=== PATIENT | male | born 1940 | race Caucasian/White ===

== ENCOUNTER 2018-10-27 19:28 | Inpatient (IN) | payer MEDICARE ==
[~2018-10-27] VITALS: Ht 175.3 cm; Wt 43.1 kg
[2018-10-27 19:00] VITALS: BP 147/85
--- NOTE | 2018-10-27 19:30 | NUR ---
Received patient with family at bedside. Alert and oriented x 1-2. Patient noted to be confused. No C/O pain or SOB at this time. Med Recon pending. MD aware. Right elbow noted to be bruised, photo taken and placed in chart. Call light and and frequently used items within reach. Will continue to monitor.
--- NOTE | 2018-10-27 19:56 | NUR ---
Admitted from [facility], per [facility] for acute metabolic encephalopathy and generalized weakness. Patient alert x1-2. No pain noted. Not in any form of distress. Assisted to commode for BM. Oriented to unit and call light. Dr Plaza made aware of admission.
[2018-10-27] MEDS ORDERED: SACC250C PO (20:00)
[2018-10-27] MEDS ORDERED: CARB1TAB40 PO (20:00)
[2018-10-27] MEDS ORDERED: SERT50TA PO (20:00)
[2018-10-27] MEDS ORDERED: FLUD0.1T PO (20:00)
[2018-10-27] MEDS ORDERED: CLON0.5T12 PO (20:00)
[2018-10-27] MEDS ORDERED: CHOL20004 PO (20:00)
[2018-10-27] MEDS ORDERED: LOVA20TA2 PO (20:00)
[2018-10-27] MEDS ORDERED: MESA0.37 PO (20:00)
[2018-10-27] MEDS ORDERED: RASA1TAB4 PO (20:00)
[2018-10-27] MEDS ORDERED: CARB-93 PO (20:00)
[2018-10-27] MEDS ORDERED: CYAN-10 PO (20:00)
[2018-10-27] MEDS ORDERED: MEMA10TA PO (20:00)
[2018-10-27 20:34] VITALS: BP 149/69
[2018-10-27] MEDS ORDERED: CLONAZEPAM 0.5 MG TABLET PO PRN (20:45)
[2018-10-27] MEDS ORDERED: CARBIDOPA/LEVODOPA CR 50-200MG TABLET.SA PO SCH (21:00)
[2018-10-27] MEDS: ATORVASTATIN 20 MG TABLET PO SCH (21:11)
[2018-10-27] MEDS: MEMANTINE HCL 5 MG TABLET PO SCH (21:11)
--- NOTE | 2018-10-28 02:03 | NUR ---
New assignment. Pt sleeping comfortably. No acute distress noted. Safety measures maintained. Bed alarm on. Call light within reach. Will continue to monitor.
[2018-10-28 05:10] VITALS: BP 176/89
--- NOTE | 2018-10-28 06:35 | NUR ---
Pt's BP this morning 176/89, HR 65. Asymptomatic. Paged Dr. Brand. As per , follow up with the pt's pharmacy first to know what the pt is taking for hypertension at home. No new medication order. Will continue to monitor. Addendum: 10/28/18 at 0646 by Mac Yi RN As per , pt's BP is okay and pt does not need PRN hypertension med at this time if he has history of hypertension. Follow up with pt's pharmacy.
[2018-10-28 07:10] VITALS: BP 166/90
--- NOTE | 2018-10-28 07:59 | NUR ---
patient is in bed, awake, no sob, no acute distress noted
[2018-10-28] MEDS: CARBIDOPA/LEVODOPA 25-100MG TABLET PO SCH ×2 (08:02→12:17)
[2018-10-28] MEDS: CHOLECALCIFEROL 1,000 UNIT TABLET PO SCH (08:02)
[2018-10-28] MEDS: MEMANTINE HCL 5 MG TABLET PO SCH ×2 (08:04→20:11)
[2018-10-28] MEDS: SERTRALINE HCL 50 MG TABLET PO SCH (08:04)
[2018-10-28] MEDS ORDERED: MEMANTINE HCL 10 MG TABLET PO SCH (09:00)
[2018-10-28] MEDS ORDERED: [UNRECOGNIZED DRUG - OTHER] PO SCH (09:00)
[2018-10-28] MEDS ORDERED: Medication Not On Formulary EA (Saccharomyces Boulardii (Florastor) 250 MG) PO SCH (09:00)
[2018-10-28] MEDS ORDERED: FLUDROCORTISONE ACETATE 0.1 MG TABLET PO SCH (09:00)
[2018-10-28] MEDS ORDERED: MESALAMINE PO SCH (09:00)
[2018-10-28] MEDS ORDERED: CHOLECALCIFEROL U PO SCH (09:00)
[2018-10-28] MEDS: METOPROLOL TARTRATE 25 MG TABLET PO SCH ×2 (09:30→20:11)
[2018-10-28 10:11] VITALS: BP 111/55
[2018-10-28 15:15] VITALS: BP 157/81
[2018-10-28] MEDS ORDERED: CYAN-51 PO (15:21)
[2018-10-28] MEDS: [UNRECOGNIZED DRUG - OTHER] PO SCH (17:03)
[2018-10-28] MEDS: RASAGILINE 1 MG PO SCH (17:03)
--- NOTE | 2018-10-28 17:24 | NUR ---
patient is alert x1 with episodes of forgetfulness and confusion, reoriented as needed, no sob, resp even nonlabored,skin warm and dry to touch, no changes noted during the shift, patient is high risk to fall, does not call for assistance, frequently monitored for safety, bed alarm is on, kept clean and dry, all needs attended timely, sister brought the medication and given to pharmacy, home meds list given to pharmacy as well.
[2018-10-28] MEDS ORDERED: Medication Not On Formulary EA (Rasagiline Mesylate 1 MG) PO SCH (18:00)
--- NOTE | 2018-10-28 19:30 | NUR ---
Patient alert and oriented x 1, and is often confused and tries to get out of bed. No acute symptoms of Parkinson's noted at this time. No C/O pain or SOB at this time. Side rails up bilaterally bilaterally for safety. Call light and frequently used items within reach. Will continue to monitor.
[2018-10-28] MEDS: CARBIDOPA/LEVODOPA CR 50-200MG TABLET.SA PO SCH (20:11)
[2018-10-28] MEDS: ATORVASTATIN 20 MG TABLET PO SCH (20:11)
[2018-10-28 20:41] VITALS: BP 146/69
[2018-10-28] MEDS ORDERED: Z GUARD REMEDY PASTE 57 GM TUBE TOP PRN (23:30)
[2018-10-29 05:00] VITALS: BP 172/76
--- NOTE | 2018-10-29 06:50 | NUR ---
MD Brand contacted for increased BP of 172/76. No new orders at this time. MD states to have day shift MD adjust medications to help HTN longterm. Does not want to start him on PRN medications at this time. Stated to have earlier dose in the day, or a stronger dose in the evening. Will endorse to oncoming shift accordingly.
[2018-10-29 06:52] VITALS: BP 179/80
[2018-10-29 06:52] LABS: BASOPHILS # (AUTO) 0.1 K/uL (0.0-8.0); BASOPHILS % (AUTO) 1.6 % (0.0-2.0); EOSINOPHILS # (AUTO) 0.8 K/uL (0.0-0.7); EOSINOPHILS % (AUTO) 10.3 % (0.0-7.0); HEMOGLOBIN 14.2 g/dL (12.5-16.3); LYMPHOCYTES # (AUTO) 1.1 K/uL (20.0-40.0); LYMPHOCYTES % (AUTO) 13.3 % (20.5-51.5); MEAN CORPUSCULAR HEMOGLOBIN 32.2 uug (23.8-33.4); MEAN CORPUSCULAR HGB CONC 35 g/dL (32.5-36.3); MONOCYTES # (AUTO) 0.5 K/uL (2.0-10.0); MONOCYTES % (AUTO) 6.1 % (0.0-11.0); NEUTROPHILS # (AUTO) 5.6 K/uL (1.8-8.9); NEUTROPHILS % (AUTO) 68.7 % (38.5-71.5); PLATELET COUNT (AUTO) 224 K/uL (152-348); RED BLOOD CELL COUNT(AUTO) 4.39 MIL/uL (4.06-5.63); WHITE BLOOD COUNT (AUTO) 8.2 K/uL (3.6-10.2)
[2018-10-29 07:10] LABS: THYROID STIMULATING HORMONE 3.125 mIU/mL (0.358-3.740)
[2018-10-29 07:32] LABS: ALANINE AMINOTRANSFERASE < 6 U/L (16-63); ALKALINE PHOSPHATASE 80 U/L (50-136); ASPARTATE AMINOTRANSFERASE 8 U/L (15-37); BILIRUBIN,TOTAL 1.1 mg/dL (0.2-1.0); CARBON DIOXIDE 33 mmol/L (21-32); CHLORIDE 105 mmol/L (98-107); CHOLESTEROL 144 mg/dL (<200); GLUCOSE 97 mg/dL (74-106); HDL CHOLESTEROL 50 mg/dL (40-60); MAGNESIUM 2.1 mg/dL (1.8-2.4); PHOSPHOROUS 3.3 mg/dL (2.5-4.9); TOTAL PROTEIN, SERUM 6.9 g/dL (6.4-8.2); TRIGLYCERIDES 72 MG/DL (30-150); UREA NITROGEN, BLOOD 27 mg/dL (7-18)
[2018-10-29] MEDS: CHOLECALCIFEROL 1,000 UNIT TABLET PO SCH (08:05)
[2018-10-29] MEDS: METOPROLOL TARTRATE 25 MG TABLET PO SCH ×2 (08:05→21:35)
[2018-10-29] MEDS: CARBIDOPA/LEVODOPA 25-100MG TABLET PO SCH ×3 (08:05→15:55)
[2018-10-29] MEDS: MEMANTINE HCL 5 MG TABLET PO SCH ×2 (08:06→21:36)
[2018-10-29] MEDS: SERTRALINE HCL 50 MG TABLET PO SCH (08:07)
[2018-10-29] MEDS: MESALAMINE 0.375 GM PO SCH (08:09)
[2018-10-29] MEDS: [UNRECOGNIZED DRUG - OTHER] PO SCH (08:09)
[2018-10-29 08:16] VITALS: BP 163/82
[2018-10-29] MEDS: PROBIOTIC PO SCH (08:39)
[2018-10-29] MEDS: [UNRECOGNIZED DRUG - OTHER] PO SCH (08:39)
[2018-10-29] MEDS: POTASSIUM CHLORIDE 10 MEQ TAB.PRT.SR PO SCH ×2 (12:18→15:14)
[2018-10-29 15:38] VITALS: BP 119/69
[2018-10-29] MEDS: [UNRECOGNIZED DRUG - OTHER] PO SCH (15:55)
[2018-10-29] MEDS: RASAGILINE 1 MG PO SCH (15:55)
--- NOTE | 2018-10-29 16:27 | NUR ---
patient is forgetful, oriented to self and her sister, no sob, resp even nonlabored, oriented as needed, frequently monitored for safety, forgets to call assistance for help, reminded and oriented about call light, sister was bedside, managed Parkinson's with Sinemet as ordered, no tremors noted, tolerated meals and meds well, assisted with ADLS, needs moderate assist, all needs attended, call light with in reach, bed alarm on for safety.
[2018-10-29 20:21] VITALS: BP 106/61
[2018-10-29] MEDS: CARBIDOPA/LEVODOPA CR 50-200MG TABLET.SA PO SCH (20:32)
[2018-10-29] MEDS: ATORVASTATIN 20 MG TABLET PO SCH (21:36)
[2018-10-30 05:46] VITALS: BP 171/82
[2018-10-30 07:10] VITALS: BP 154/75
--- NOTE | 2018-10-30 08:03 | NUR ---
Patient is alert x oriented 1 with forgetfulness and confusion noted. Breathing is even and unlabored. In NO acute distress. Skin warm and dry to touch. Assisted with ADLs during shift, safety measures in place, monitored closely. Due medications administered as ordered and scheduled and tolerated well. Skin kept clean and dry, needs attended, assisted with ADLs, call light left within easy reach and will continue with care.
[2018-10-30] MEDS: MEMANTINE HCL 5 MG TABLET PO SCH ×2 (08:19→20:16)
[2018-10-30] MEDS: CHOLECALCIFEROL 1,000 UNIT TABLET PO SCH (08:19)
[2018-10-30] MEDS: CARBIDOPA/LEVODOPA 25-100MG TABLET PO SCH ×3 (08:19→14:46)
[2018-10-30] MEDS: METOPROLOL TARTRATE 25 MG TABLET PO SCH ×2 (08:20→20:16)
[2018-10-30] MEDS: SERTRALINE HCL 50 MG TABLET PO SCH (08:20)
[2018-10-30] MEDS: MESALAMINE 0.375 GM PO SCH (08:21)
[2018-10-30] MEDS: [UNRECOGNIZED DRUG - OTHER] PO SCH (08:21)
[2018-10-30] MEDS: [UNRECOGNIZED DRUG - OTHER] PO SCH (08:23)
[2018-10-30] MEDS: PROBIOTIC PO SCH (08:23)
--- NOTE | 2018-10-30 09:54 | NUR ---
INDIVIDUALIZED OVERALL PLAN OF CARE
--- NOTE | 2018-10-30 10:58 | NUR ---
Received patient awake in bed with periods of confusion. not in distress. Continue therapy for ADL and unsteady gait. Continue minimal assist for BRP. no complaint of pain/discomfort. will continue monitor
--- NOTE | 2018-10-30 12:25 | NUR ---
INTERDISCIPLINARY TEAM CONFERENCE
[2018-10-30] MEDS: RASAGILINE 1 MG PO SCH (14:46)
[2018-10-30] MEDS: [UNRECOGNIZED DRUG - OTHER] PO SCH (14:46)
[2018-10-30 15:10] VITALS: BP 151/70
[2018-10-30] MEDS: CARBIDOPA/LEVODOPA CR 50-200MG TABLET.SA PO SCH (20:14)
[2018-10-30] MEDS: ATORVASTATIN 20 MG TABLET PO SCH (20:15)
[2018-10-30 20:29] VITALS: BP 140/58
--- NOTE | 2018-10-31 05:00 | NUR ---
aaox1-2 with periods of confusion and disorientation. VSS Needs attended. Kept comfortable. Incontinent of bowel and bladder. No BM noted thias Kept clean and dry. Fall precautions maintained. Tolerated po meds well. No nausea or vomitting noted.
[2018-10-31 06:12] VITALS: BP 121/48
[2018-10-31 07:25] LABS: BASOPHILS # (AUTO) 0.1 K/uL (0.0-8.0); BASOPHILS % (AUTO) 1.3 % (0.0-2.0); EOSINOPHILS # (AUTO) 0.9 K/uL (0.0-0.7); EOSINOPHILS % (AUTO) 10.6 % (0.0-7.0); HEMATOCRIT 38.5 % (36.7-47.1); HEMOGLOBIN 13.6 g/dL (12.5-16.3); LYMPHOCYTES % (AUTO) 11.8 % (20.5-51.5); MEAN CORPUSCULAR HEMOGLOBIN 32.4 uug (23.8-33.4); MEAN CORPUSCULAR HGB CONC 35 g/dL (32.5-36.3); MEAN CORPUSCULAR VOLUME 91.3 fL (73.0-96.2); MONOCYTES # (AUTO) 0.4 K/uL (2.0-10.0); MONOCYTES % (AUTO) 4.5 % (0.0-11.0); NEUTROPHILS # (AUTO) 6.3 K/uL (1.8-8.9); NEUTROPHILS % (AUTO) 71.8 % (38.5-71.5); PLATELET COUNT (AUTO) 234 K/uL (152-348); RED BLOOD CELL COUNT(AUTO) 4.21 MIL/uL (4.06-5.63); WHITE BLOOD COUNT (AUTO) 8.8 K/uL (3.6-10.2)
[2018-10-31 07:35] LABS: ALANINE AMINOTRANSFERASE < 6 U/L (16-63); ALKALINE PHOSPHATASE 87 U/L (50-136); ASPARTATE AMINOTRANSFERASE 14 U/L (15-37); CARBON DIOXIDE 32 mmol/L (21-32); CHLORIDE 104 mmol/L (98-107); GLUCOSE 99 mg/dL (74-106); PHOSPHOROUS 2.9 mg/dL (2.5-4.9); POTASSIUM 3.4 mmol/L (3.5-5.1); TOTAL PROTEIN, SERUM 7.1 g/dL (6.4-8.2); UREA NITROGEN, BLOOD 29 mg/dL (7-18)
--- NOTE | 2018-10-31 07:40 | NUR ---
Patient noted resting in bed with eyes closed, no complaints of pain at this time, no signs of distress noted, call light in reach, bed light in lowest position, all needs met
[2018-10-31] MEDS: CHOLECALCIFEROL 1,000 UNIT TABLET PO SCH (08:28)
[2018-10-31] MEDS: SERTRALINE HCL 50 MG TABLET PO SCH (08:29)
[2018-10-31] MEDS: METOPROLOL TARTRATE 25 MG TABLET PO SCH ×2 (08:30→20:32)
[2018-10-31] MEDS: MEMANTINE HCL 5 MG TABLET PO SCH ×2 (08:30→20:31)
[2018-10-31] MEDS: CARBIDOPA/LEVODOPA 25-100MG TABLET PO SCH ×3 (08:30→16:53)
[2018-10-31 08:31] VITALS: BP 176/86
[2018-10-31] MEDS: MESALAMINE 0.375 GM PO SCH (08:31)
[2018-10-31] MEDS: [UNRECOGNIZED DRUG - OTHER] PO SCH (08:31)
[2018-10-31] MEDS: PROBIOTIC PO SCH (08:31)
[2018-10-31] MEDS: [UNRECOGNIZED DRUG - OTHER] PO SCH (08:31)
[2018-10-31] MEDS ORDERED: POTASSIUM CHLORIDE 20 MEQ TAB.PRT.SR PO ONE (14:45)
[2018-10-31 15:48] VITALS: BP 107/65
[2018-10-31] MEDS: RASAGILINE 1 MG PO SCH (16:54)
[2018-10-31] MEDS: [UNRECOGNIZED DRUG - OTHER] PO SCH (16:54)
[2018-10-31 20:03] VITALS: BP 128/76
[2018-10-31] MEDS: ATORVASTATIN 20 MG TABLET PO SCH (20:31)
[2018-10-31] MEDS: CARBIDOPA/LEVODOPA CR 50-200MG TABLET.SA PO SCH (20:32)
[2018-11-01 04:52] VITALS: BP 172/81
--- NOTE | 2018-11-01 06:26 | NUR ---
quiet night. tolerated po meds well. VSS OOB to the BR with walker under supervision. Voiding well. Needs attended. denies any pain nor any discomfort. Siderails up for safety. will monitor patient.
[2018-11-01 08:00] VITALS: BP 157/74
[2018-11-01] MEDS: [UNRECOGNIZED DRUG - OTHER] PO SCH (09:12)
[2018-11-01] MEDS: PROBIOTIC PO SCH (09:12)
[2018-11-01] MEDS: [UNRECOGNIZED DRUG - OTHER] PO SCH (09:12)
[2018-11-01] MEDS: MESALAMINE 0.375 GM PO SCH (09:12)
[2018-11-01] MEDS: SERTRALINE HCL 50 MG TABLET PO SCH (09:13)
[2018-11-01] MEDS: MEMANTINE HCL 5 MG TABLET PO SCH ×2 (09:13→20:34)
[2018-11-01] MEDS: CARBIDOPA/LEVODOPA 25-100MG TABLET PO SCH ×3 (09:13→16:44)
[2018-11-01] MEDS: CHOLECALCIFEROL 1,000 UNIT TABLET PO SCH (09:13)
[2018-11-01] MEDS: METOPROLOL TARTRATE 25 MG TABLET PO SCH ×2 (09:14→20:33)
[2018-11-01 16:36] VITALS: BP 105/61
[2018-11-01] MEDS: RASAGILINE 1 MG PO SCH (16:45)
[2018-11-01] MEDS: [UNRECOGNIZED DRUG - OTHER] PO SCH (16:45)
[2018-11-01 19:49] VITALS: BP 119/62
--- NOTE | 2018-11-01 19:50 | NUR ---
awake alert and oriented x1-2. cionfused and disoriented. resting in bed upon initial rounds. VSS. OOB to the BR with supervision. Voiding well. Needs attended. Fall precautions maintained. Siderails up for safety. Will monitor patient.
[2018-11-01] MEDS: CARBIDOPA/LEVODOPA CR 50-200MG TABLET.SA PO SCH (20:32)
[2018-11-01] MEDS: ATORVASTATIN 20 MG TABLET PO SCH (20:34)
[2018-11-02 04:42] VITALS: BP 136/73
[2018-11-02 07:41] LABS: MAGNESIUM 2.1 mg/dL (1.8-2.4); POTASSIUM 3.7 mmol/L (3.5-5.1)
[2018-11-02 08:00] VITALS: BP 166/76
[2018-11-02] MEDS: CARBIDOPA/LEVODOPA 25-100MG TABLET PO SCH ×3 (08:31→16:08)
[2018-11-02] MEDS: MEMANTINE HCL 5 MG TABLET PO SCH ×2 (08:31→20:38)
[2018-11-02] MEDS: CHOLECALCIFEROL 1,000 UNIT TABLET PO SCH (08:31)
[2018-11-02] MEDS: SERTRALINE HCL 50 MG TABLET PO SCH (08:31)
[2018-11-02] MEDS: [UNRECOGNIZED DRUG - OTHER] PO SCH (08:32)
[2018-11-02] MEDS: MESALAMINE 0.375 GM PO SCH (08:32)
[2018-11-02] MEDS: [UNRECOGNIZED DRUG - OTHER] PO SCH (08:32)
[2018-11-02] MEDS: METOPROLOL TARTRATE 25 MG TABLET PO SCH ×2 (08:32→20:39)
[2018-11-02] MEDS: PROBIOTIC PO SCH (08:32)
--- NOTE | 2018-11-02 15:00 | NUR ---
Patient increase confusion from baseline noted, md Ayoub made aware with orders for 1) Urine analysis with culture 2) CT of head without contrast 3) decrease Sinemet 25-100 for 2 tabs TID to 1 tab TID
[2018-11-02] MEDS: RASAGILINE 1 MG PO SCH (16:07)
[2018-11-02] MEDS: [UNRECOGNIZED DRUG - OTHER] PO SCH (16:07)
[2018-11-02 16:30] VITALS: BP 119/54
[2018-11-02 18:23] LABS: *BILIRUBIN,URIN 2+ (NEGATIVE); *BLOOD, URINE NEGATIVE (NEGATIVE); *CLARITY,URINE SLIGHTLY CLOUDY (CLEAR); *COLOR,URINE DARK YELLOW (YELLOW); *KETONES,URINE 1+ (NEGATIVE); LEUKOCYTE ESTERASE ,URINE TRACE (NEGATIVE); NITRITE, URINE NEGATIVE (NEGATIVE); UGLUCOSE NEGATIVE (NEGATIVE)
[2018-11-02 18:26] LABS: *CHLORIDE RNDM,URINE 55 mmol/L (100-250); *POTASSIUM RNDM,URINE 73 mmol/L (25-125)
[2018-11-02 18:32] LABS: BACTERIA,URINE FEW /HPF (NONE SEEN); SQUAMOUS EPITHELIAL CELL,UR FEW /HPF (NONE SEEN)
[2018-11-02 18:34] LABS: CALCIUM OXALATE CRYSTALS,UR FEW /HPF (NONE SEEN)
--- NOTE | 2018-11-02 19:15 | NUR ---
Patient awake during rounds, always trying to get out of bed despite frequent instruction not to to avoid falls/injury. Non compliant to treatment. Close physical and visual supervision rendered. Safety measure and fall precaution strictly maintained at [facility] time due to recent fall incident today.
--- NOTE | 2018-11-02 19:22 | NUR ---
patient noted walking with walk with out calling for assistance, witnessed falling by on coming nurse, On coming nurse witnessed patient falling left side, obtain left elbow skin tear, denies pain, vitals:132/67, 96% 02, 60 pulse, 98.0 oral temperature, MD Ayoub made aware with new orders for left hip and left elbow X-ray. Addendum: 11/02/18 at 1951 by GAIL FARRIS RN RN Sister Rahel informed of findings, coil machine supervisor notified, order for 1 to 1 sitter, patient place in room near front facer, bed alarm in place
[2018-11-02] MEDS: CARBIDOPA/LEVODOPA CR 50-200MG TABLET.SA PO SCH (20:38)
[2018-11-02] MEDS: CLONAZEPAM 0.5 MG TABLET PO PRN (20:38)
[2018-11-02] MEDS: ATORVASTATIN 20 MG TABLET PO SCH (20:38)
[2018-11-02] MEDS: CLOBETASOL PROPIONATE 0.05% OINT 15 GM TUBE TOP SCH (20:40)
[2018-11-02 22:04] VITALS: BP 132/67
[2018-11-03 04:40] VITALS: BP 174/91
[2018-11-03] MEDS: METOPROLOL TARTRATE 25 MG TABLET PO SCH ×2 (06:07→20:38)
--- NOTE | 2018-11-03 06:10 | NUR ---
Patient SBP 174/91, HR 63, early dose of Metoprolol given. will monitor BP and endorse to oncoming nurse.
--- NOTE | 2018-11-03 06:36 | NUR ---
Shift End Report: Slept well after Klonopin administration as ordered and as needed. All needs attended and met. No significant event reported. Close physical and visual monitoring maintained. Continue current rehab plan of care.
[2018-11-03 08:00] VITALS: BP 175/84
[2018-11-03] MEDS: CHOLECALCIFEROL 1,000 UNIT TABLET PO SCH (09:04)
[2018-11-03] MEDS: CARBIDOPA/LEVODOPA 25-100MG TABLET PO SCH ×3 (09:05→17:36)
[2018-11-03] MEDS: CLONIDINE HCL 0.1 MG TABLET PO PRN ×2 (09:06→20:37)
[2018-11-03] MEDS: [UNRECOGNIZED DRUG - OTHER] PO SCH (09:06)
[2018-11-03] MEDS: MESALAMINE 0.375 GM PO SCH (09:06)
[2018-11-03] MEDS: PROBIOTIC PO SCH (09:06)
[2018-11-03] MEDS: SERTRALINE HCL 50 MG TABLET PO SCH (09:06)
[2018-11-03] MEDS: [UNRECOGNIZED DRUG - OTHER] PO SCH (09:06)
[2018-11-03] MEDS: MEMANTINE HCL 5 MG TABLET PO SCH ×2 (09:07→20:36)
[2018-11-03] MEDS: CLOBETASOL PROPIONATE 0.05% OINT 15 GM TUBE TOP SCH ×2 (09:07→20:39)
[2018-11-03 11:06] VITALS: BP 101/49
--- NOTE | 2018-11-03 12:02 | NUR ---
Received patient awake in bed. BP- 175/84. MD notified ordered clonidine 0.1mg every 6 hours for pain. not in distress. Weakness noted after therapy. MD Hancock aware, Seen and examined by MD with no new order. Latest BP-101/49. SPO2- 96%. will continue monitor
[2018-11-03 16:00] VITALS: BP 121/61
[2018-11-03] MEDS: RASAGILINE 1 MG PO SCH (17:34)
[2018-11-03] MEDS: [UNRECOGNIZED DRUG - OTHER] PO SCH (17:34)
--- NOTE | 2018-11-03 19:40 | NUR ---
Awake , in bed. Sitter at bedside. Not in distress. cooperative with care, calm and pleasant to talk to. Safety measure and fall precaution maintained. Continue plan of care.
[2018-11-03] MEDS: CARBIDOPA/LEVODOPA CR 50-200MG TABLET.SA PO SCH (19:43)
[2018-11-03 20:00] VITALS: BP 160/84
[2018-11-03] MEDS: CLONAZEPAM 0.5 MG TABLET PO PRN (20:36)
[2018-11-03] MEDS: ATORVASTATIN 20 MG TABLET PO SCH (20:38)
--- NOTE | 2018-11-03 21:02 | NUR ---
Clonidine 0.1 mg given with SBP 160/84. NO s/s of hypertension noted. Will monitor.
[2018-11-04 06:09] VITALS: BP 141/78
--- NOTE | 2018-11-04 06:29 | NUR ---
Shift End Report: Slept well. No compliant presented all night. Been quiet, calm and cooperative at times but increased confusion and incoherent noted. Sitter 1:1 maintained at bedside. No fall/injury. No significant event reported all night. Continue current rehab plan of care.
[2018-11-04 08:17] VITALS: BP 142/76
[2018-11-04] MEDS: [UNRECOGNIZED DRUG - OTHER] PO SCH (08:45)
[2018-11-04] MEDS: PROBIOTIC PO SCH (08:45)
[2018-11-04] MEDS: SERTRALINE HCL 50 MG TABLET PO SCH (08:46)
[2018-11-04] MEDS: CARBIDOPA/LEVODOPA 25-100MG TABLET PO SCH ×3 (08:46→16:31)
[2018-11-04] MEDS: MESALAMINE 0.375 GM PO SCH (08:46)
[2018-11-04] MEDS: CHOLECALCIFEROL 1,000 UNIT TABLET PO SCH (08:46)
[2018-11-04] MEDS: MEMANTINE HCL 5 MG TABLET PO SCH ×2 (08:46→21:05)
[2018-11-04] MEDS: [UNRECOGNIZED DRUG - OTHER] PO SCH (08:46)
[2018-11-04] MEDS: CLOBETASOL PROPIONATE 0.05% OINT 15 GM TUBE TOP SCH ×2 (08:47→21:07)
[2018-11-04] MEDS: METOPROLOL TARTRATE 25 MG TABLET PO SCH ×2 (08:47→21:06)
--- NOTE | 2018-11-04 09:30 | NUR ---
Received patient, awake, alert x1, resting in bed with 1:1 sitter at bedside. Patient still confused at times and can be impulsive with trying to stand-up unassisted. Re-oriented as necessary, morning care done.
--- NOTE | 2018-11-04 14:00 | NUR ---
Participated well with therapy, still with periods of confusion. With sister at bed side. No pain noted.
[2018-11-04 15:25] VITALS: BP 135/60
[2018-11-04] MEDS: RASAGILINE 1 MG PO SCH (16:29)
[2018-11-04] MEDS: [UNRECOGNIZED DRUG - OTHER] PO SCH (16:29)
[2018-11-04] MEDS: CARBIDOPA/LEVODOPA CR 50-200MG TABLET.SA PO SCH (19:04)
--- NOTE | 2018-11-04 19:30 | NUR ---
Up on a chair inside room, spoon feeding by the sitter for a late dinner. No swallowing problem presented. Cooperative and calm this time. No s/s of respiratory distress. Safety measure and fall precaution maintained. Continue care as planned.
[2018-11-04 19:35] VITALS: BP 119/60
[2018-11-04] MEDS: CLONAZEPAM 0.5 MG TABLET PO PRN (21:05)
[2018-11-04] MEDS: ATORVASTATIN 20 MG TABLET PO SCH (21:05)
[2018-11-05 05:28] VITALS: BP 183/91
[2018-11-05] MEDS: CLONIDINE HCL 0.1 MG TABLET PO PRN (05:38)
--- NOTE | 2018-11-05 06:29 | NUR ---
Shift End Report: Slept well. No complaint presented. Remain on Sitter 1:1 for safety. No fall/injury report. All needs attended and met. No significant event reported. Continue current rehab plan of care.
[2018-11-05] MEDS: CHOLECALCIFEROL 1,000 UNIT TABLET PO SCH (08:52)
[2018-11-05] MEDS: CARBIDOPA/LEVODOPA 25-100MG TABLET PO SCH ×3 (08:55→15:44)
[2018-11-05] MEDS: SERTRALINE HCL 50 MG TABLET PO SCH (08:55)
[2018-11-05] MEDS: METOPROLOL TARTRATE 25 MG TABLET PO SCH ×2 (08:56→21:03)
[2018-11-05] MEDS: [UNRECOGNIZED DRUG - OTHER] PO SCH (08:57)
[2018-11-05] MEDS: [UNRECOGNIZED DRUG - OTHER] PO SCH (08:57)
[2018-11-05] MEDS: MESALAMINE 0.375 GM PO SCH (08:57)
[2018-11-05] MEDS: PROBIOTIC PO SCH (08:57)
[2018-11-05] MEDS: MEMANTINE HCL 5 MG TABLET PO SCH ×2 (08:57→21:03)
[2018-11-05] MEDS: CLOBETASOL PROPIONATE 0.05% OINT 15 GM TUBE TOP SCH ×2 (08:58→21:04)
[2018-11-05 10:44] VITALS: BP 125/68
--- NOTE | 2018-11-05 11:51 | NUR ---
Received patient awake in stable condition. no behavioral problem noted. Continue with 1:1 sitter. no complaint of pain/discomfort. not in distress. will continue monitor
[2018-11-05] MEDS: RASAGILINE 1 MG PO SCH (15:44)
[2018-11-05] MEDS: [UNRECOGNIZED DRUG - OTHER] PO SCH (15:44)
[2018-11-05] MEDS: CARBIDOPA/LEVODOPA CR 50-200MG TABLET.SA PO SCH (18:39)
[2018-11-05 19:54] VITALS: BP 136/67
--- NOTE | 2018-11-05 20:00 | NUR ---
Patient received into care awake and resting comfortably in bed. Patient is alert/oriented x3, with no complaints of pain or discomfort at this time. All safety and fall precaution measures are in place. Call light and personal items are within reach at all times. Will continue to monitor.
[2018-11-05] MEDS: CLONAZEPAM 0.5 MG TABLET PO PRN (21:01)
[2018-11-05] MEDS: ATORVASTATIN 20 MG TABLET PO SCH (21:02)
--- NOTE | 2018-11-06 05:44 | NUR ---
Patient slept intermittently throughout night with no complaints of pain or discomfort. Attempts to get out of bed were stopped with patient redirection. All safety and fall precautions remain in place. Call light and personal items remain in place. VS are wnl and patient is stable.
[2018-11-06 05:45] VITALS: BP 140/74
[2018-11-06 07:58] VITALS: BP 167/82
[2018-11-06] MEDS: CARBIDOPA/LEVODOPA 25-100MG TABLET PO SCH ×3 (08:14→14:46)
[2018-11-06] MEDS: CLONIDINE HCL 0.1 MG TABLET PO PRN (08:14)
[2018-11-06] MEDS: CHOLECALCIFEROL 1,000 UNIT TABLET PO SCH (08:15)
[2018-11-06] MEDS: METOPROLOL TARTRATE 25 MG TABLET PO SCH ×2 (08:15→20:29)
[2018-11-06] MEDS: SERTRALINE HCL 50 MG TABLET PO SCH (08:17)
[2018-11-06] MEDS: MEMANTINE HCL 5 MG TABLET PO SCH ×2 (08:17→20:29)
[2018-11-06] MEDS: [UNRECOGNIZED DRUG - OTHER] PO SCH (08:17)
[2018-11-06] MEDS: PROBIOTIC PO SCH (08:17)
[2018-11-06] MEDS: MESALAMINE 0.375 GM PO SCH (08:17)
[2018-11-06] MEDS: [UNRECOGNIZED DRUG - OTHER] PO SCH (08:17)
[2018-11-06] MEDS: CLOBETASOL PROPIONATE 0.05% OINT 15 GM TUBE TOP SCH ×2 (08:18→20:29)
--- NOTE | 2018-11-06 10:05 | NUR ---
Received patient awake in bed in stable condition. BP- 167/82 this morning, clonidine 0.1mg PRN given and routine metoprolol 25mg given. During therapy, Patient become lethargic and less responsive. went back to room, recheck BP- 57/35, return patient to bed, put up lower bed, then recheck BP- R- 118/54, L- 137/63, put down the lower part of bed, BP- 112/57. Patient more responsive to touch and verbally . MD Hancock made aware. no change in BP meds as per MD. ordered CBC and BMP. not in distress. will continue monitor
[2018-11-06 10:21] LABS: BASOPHILS # (AUTO) 0.1 K/uL (0.0-8.0); BASOPHILS % (AUTO) 1.1 % (0.0-2.0); EOSINOPHILS # (AUTO) 0.4 K/uL (0.0-0.7); EOSINOPHILS % (AUTO) 5.1 % (0.0-7.0); HEMATOCRIT 38.7 % (36.7-47.1); HEMOGLOBIN 13.2 g/dL (12.5-16.3); LYMPHOCYTES # (AUTO) 0.6 K/uL (20.0-40.0); LYMPHOCYTES % (AUTO) 7.3 % (20.5-51.5); MEAN CORPUSCULAR HEMOGLOBIN 31.9 uug (23.8-33.4); MEAN CORPUSCULAR HGB CONC 34 g/dL (32.5-36.3); MEAN CORPUSCULAR VOLUME 93.8 fL (73.0-96.2); MONOCYTES # (AUTO) 0.3 K/uL (2.0-10.0); MONOCYTES % (AUTO) 3.4 % (0.0-11.0); NEUTROPHILS # (AUTO) 6.7 K/uL (1.8-8.9); NEUTROPHILS % (AUTO) 83.1 % (38.5-71.5); PLATELET COUNT (AUTO) 285 K/uL (152-348); RED BLOOD CELL COUNT(AUTO) 4.13 MIL/uL (4.06-5.63); WHITE BLOOD COUNT (AUTO) 8.1 K/uL (3.6-10.2)
[2018-11-06 10:22] LABS: CARBON DIOXIDE 31 mmol/L (21-32); CHLORIDE 102 mmol/L (98-107); CREATININE 0.9 mg/dL (0.6-1.3); GLUCOSE 165 mg/dL (74-106); POTASSIUM 3.9 mmol/L (3.5-5.1); UREA NITROGEN, BLOOD 19 mg/dL (7-18)
[2018-11-06] MEDS: [UNRECOGNIZED DRUG - OTHER] PO SCH (14:47)
[2018-11-06] MEDS: RASAGILINE 1 MG PO SCH (14:47)
--- NOTE | 2018-11-06 15:08 | NUR ---
INTERDISCIPLINARY TEAM CONFERENCE
--- NOTE | 2018-11-06 17:17 | NUR ---
Patient verbalize" Im scared, its all in my head, someone is coming. " MD Plaza aware, Referred to Psych consult. no agitation noted. will continue monitor
[2018-11-06] MEDS: CARBIDOPA/LEVODOPA CR 50-200MG TABLET.SA PO SCH (19:05)
--- NOTE | 2018-11-06 19:48 | NUR ---
Patient received in bed. AAO x2, only by name and date of , with periods of confusion and forgetfulness. No acute distress or SOB noted. On room air. No Complain of pain at this time. Safety measures observed. Fall precaution maintained. Bed in low position, side rails up x2 for safety, brake and alarm on. Call light and personal belongings within reach. Continue to monitor.
[2018-11-06] MEDS: risperiDONE 0.25 MG TABLET PO SCH (20:29)
[2018-11-06] MEDS: ATORVASTATIN 20 MG TABLET PO SCH (20:29)
[2018-11-06 20:35] VITALS: BP 166/83
[2018-11-06] MEDS: CLONAZEPAM 0.5 MG TABLET PO PRN (22:29)
[2018-11-07] VITALS (7 sets, daily range): BP systolic 101–175; BP diastolic 57–87
--- NOTE | 2018-11-07 05:59 | NUR ---
Patient developed high BP: 171/87, HR:55. No other symptoms. Contacted [facility] on-call. While waiting the response rechecked after 20 minutes: BP:157/75, HR:56. Barbara Eng PIPE STRAIGHTENER was informed. Per PIPE STRAIGHTENER, no new order only monitoring. Continue to monitor and will endorse to the day shift nurse.
--- NOTE | 2018-11-07 09:10 | NUR ---
Patient noted resting in bed with eyes closed, no facial cues of pain noted, no signs of distress noted, call light in reach, bed locked and in lowest position, all needs met at this time
[2018-11-07] MEDS: SERTRALINE HCL 50 MG TABLET PO SCH (09:28)
[2018-11-07] MEDS: CARBIDOPA/LEVODOPA 25-100MG TABLET PO SCH ×3 (09:29→16:52)
[2018-11-07] MEDS: MEMANTINE HCL 5 MG TABLET PO SCH ×2 (09:29→20:06)
[2018-11-07] MEDS: CHOLECALCIFEROL 1,000 UNIT TABLET PO SCH (09:29)
[2018-11-07] MEDS: MESALAMINE 0.375 GM PO SCH (09:30)
[2018-11-07] MEDS: PROBIOTIC PO SCH (09:30)
[2018-11-07] MEDS: METOPROLOL TARTRATE 25 MG TABLET PO SCH ×2 (09:30→20:06)
[2018-11-07] MEDS: [UNRECOGNIZED DRUG - OTHER] PO SCH (09:30)
[2018-11-07] MEDS: [UNRECOGNIZED DRUG - OTHER] PO SCH (09:30)
[2018-11-07] MEDS: CLOBETASOL PROPIONATE 0.05% OINT 15 GM TUBE TOP SCH ×2 (09:31→20:07)
[2018-11-07] MEDS: [UNRECOGNIZED DRUG - OTHER] PO SCH (16:52)
[2018-11-07] MEDS: RASAGILINE 1 MG PO SCH (16:52)
[2018-11-07] MEDS: IV NS 1000 ML 1,000 ML IV SCH (16:53)
[2018-11-07] MEDS: risperiDONE 0.25 MG TABLET PO SCH (20:06)
[2018-11-07] MEDS: CARBIDOPA/LEVODOPA CR 50-200MG TABLET.SA PO SCH (20:06)
[2018-11-07] MEDS: ATORVASTATIN 20 MG TABLET PO SCH (20:06)
--- NOTE | 2018-11-07 21:28 | NUR ---
Alert and oriented x 1-2. Patient noted to be confused. No C/O pain or SOB at this time. Call light and and frequently used items within reach. Will continue to monitor. Addendum: 11/07/18 at 2130 by REKHA WARD RN Patient on NS at 75 mL an hour. 2 L ordered to be infused.
[2018-11-07] MEDS: CLONAZEPAM 0.5 MG TABLET PO PRN (21:45)
[2018-11-08 04:00] VITALS: BP 177/86
[2018-11-08] MEDS: IV NS 1000 ML 1,000 ML IV SCH (04:21)
[2018-11-08 06:19] VITALS: BP 160/84
[2018-11-08 08:00] VITALS: BP 187/90
[2018-11-08] MEDS: CARBIDOPA/LEVODOPA 25-100MG TABLET PO SCH ×3 (08:33→16:59)
[2018-11-08] MEDS: METOPROLOL TARTRATE 25 MG TABLET PO SCH (08:34)
[2018-11-08] MEDS: [UNRECOGNIZED DRUG - OTHER] PO SCH (08:35)
[2018-11-08] MEDS: CHOLECALCIFEROL 1,000 UNIT TABLET PO SCH (08:35)
[2018-11-08] MEDS: MESALAMINE 0.375 GM PO SCH (08:35)
[2018-11-08] MEDS: MEMANTINE HCL 5 MG TABLET PO SCH ×2 (08:35→20:44)
[2018-11-08] MEDS: SERTRALINE HCL 50 MG TABLET PO SCH (08:35)
[2018-11-08] MEDS: [UNRECOGNIZED DRUG - OTHER] PO SCH (08:36)
[2018-11-08] MEDS: PROBIOTIC PO SCH (08:36)
[2018-11-08] MEDS: CLOBETASOL PROPIONATE 0.05% OINT 15 GM TUBE TOP SCH ×2 (08:42→20:45)
--- NOTE | 2018-11-08 11:04 | NUR ---
Pt received this morning resting in bed, assisted to eat breakfast. Pt assessed, no acute distress, no SOB, right forearm 22 IV running NS at 75 ml/hr. Pt seen by MD. Orthostatic BP taken sitting 170/70, hr 68, laying down 164/75, hr 69, and standing 131/69, hr 82. MD made aware, plan to continue running IV fluids at 75ml/hr until tomorrow. Pt compliant with medications and therapies as ordered. Bed in locked and lowest position with side rails up and alarm on. Personal items and call light placed within reach, will continue to monitor Pt for safety.
[2018-11-08] MEDS: LOSARTAN POTASSIUM 25 MG TABLET PO SCH (12:02)
[2018-11-08] MEDS: RASAGILINE 1 MG PO SCH (15:43)
[2018-11-08] MEDS: [UNRECOGNIZED DRUG - OTHER] PO SCH (15:43)
[2018-11-08 15:55] VITALS: BP 145/71
--- NOTE | 2018-11-08 18:59 | NUR ---
Pt's sister visited at bedside for lunch. Pt has episodes of confusion since late afternoon. No acute distress observed. IV still running. plan of care Discussed. Bed alarm on, side rails up, call light within reach. Will continue to monitor and endorse to oncoming assistant casino shift manager.
[2018-11-08] MEDS: risperiDONE 0.25 MG TABLET PO SCH (20:44)
[2018-11-08] MEDS: ATORVASTATIN 20 MG TABLET PO SCH (20:44)
[2018-11-08] MEDS: CARBIDOPA/LEVODOPA CR 50-200MG TABLET.SA PO SCH (20:44)
[2018-11-08 20:59] VITALS: BP 143/64
[2018-11-08] MEDS: CLONAZEPAM 0.5 MG TABLET PO PRN (21:30)
--- NOTE | 2018-11-09 05:35 | NUR ---
Patient received in bed. AAO x2, only by name and date of , with periods of confusion and forgetfulness. No acute distress or SOB noted. On room air. No Complain of pain. All due medications given and tolerated well. Safety measures observed. Fall precaution maintained. All needs attended promptly. Bed in low position, side rails up x2 for safety, brake and alarm on. Call light and personal belongings within reach. Continue to monitor and will endorse to oncoming nurse accordingly.
[2018-11-09 08:08] VITALS: BP 149/76
[2018-11-09] MEDS: CHOLECALCIFEROL 1,000 UNIT TABLET PO SCH (08:09)
[2018-11-09] MEDS: [UNRECOGNIZED DRUG - OTHER] PO SCH (08:10)
[2018-11-09] MEDS: MESALAMINE 0.375 GM PO SCH (08:10)
[2018-11-09] MEDS: SERTRALINE HCL 50 MG TABLET PO SCH (08:10)
[2018-11-09] MEDS: MEMANTINE HCL 5 MG TABLET PO SCH ×2 (08:10→20:10)
[2018-11-09] MEDS: CARBIDOPA/LEVODOPA 25-100MG TABLET PO SCH ×3 (08:10→16:45)
[2018-11-09] MEDS: LOSARTAN POTASSIUM 25 MG TABLET PO SCH (08:10)
[2018-11-09] MEDS: PROBIOTIC PO SCH (08:19)
[2018-11-09] MEDS: [UNRECOGNIZED DRUG - OTHER] PO SCH (08:19)
[2018-11-09] MEDS: CLOBETASOL PROPIONATE 0.05% OINT 15 GM TUBE TOP SCH ×2 (08:19→20:15)
[2018-11-09] MEDS ORDERED: IV NS 1000 ML 1,000 ML IV ONE (10:45)
[2018-11-09] MEDS ORDERED: LOSARTAN POTASSIUM 25 MG TABLET PO SCH (12:30)
[2018-11-09] MEDS ORDERED: LOSARTAN POTASSIUM 25 MG TABLET PO ONE (12:45)
[2018-11-09] MEDS ORDERED: MAGNESIUM HYDROXIDE 30 ML LIQUID UDC PO PRN (14:15)
--- NOTE | 2018-11-09 14:50 | NUR ---
Normal saline IV 75mL/hr fluid continues per MD orders for orthostatic hypotension: Supine:149/76, sittin/68, standin/60
[2018-11-09 16:24] VITALS: BP 131/78
[2018-11-09] MEDS: FLUDROCORTISONE ACETATE 0.1 MG TABLET PO SCH (16:45)
[2018-11-09] MEDS: [UNRECOGNIZED DRUG - OTHER] PO SCH (16:46)
[2018-11-09] MEDS: RASAGILINE 1 MG PO SCH (16:46)
[2018-11-09] MEDS: CLONAZEPAM 0.5 MG TABLET PO PRN (18:26)
[2018-11-09] MEDS ORDERED: CLONAZEPAM 1 MG TABLET PO ONE (18:45)
--- NOTE | 2018-11-09 18:58 | NUR ---
One time order for klonopin given per MD Orders for patient agitation, will endorse info to operation shift supervisor nurse.
[2018-11-09] MEDS ORDERED: CLONAZEPAM 0.5 MG TABLET PO ONE (19:00)
[2018-11-09] MEDS: risperiDONE 0.25 MG TABLET PO SCH (20:10)
[2018-11-09] MEDS: ATORVASTATIN 20 MG TABLET PO SCH (20:10)
[2018-11-09] MEDS: LOSARTAN POTASSIUM 50 MG TABLET PO SCH (20:11)
[2018-11-09] MEDS: CARBIDOPA/LEVODOPA CR 50-200MG TABLET.SA PO SCH (20:11)
[2018-11-09 21:28] VITALS: BP 160/87
--- NOTE | 2018-11-10 04:14 | NUR ---
slept well most of the shift. VSS. needs attended. Tolerated po meds well. kept comfortable. PT/OT daily.will monitor patient. denies any pain nor any discomfort. incontinent of bowel and bladder. No BM noted this shift. Possible d/c today.
[2018-11-10 05:00] VITALS: BP 166/84
[2018-11-10 07:55] VITALS: BP 183/89
[2018-11-10] MEDS: CHOLECALCIFEROL 1,000 UNIT TABLET PO SCH (09:14)
[2018-11-10] MEDS: CARBIDOPA/LEVODOPA 25-100MG TABLET PO SCH ×2 (09:14→13:20)
[2018-11-10] MEDS: LOSARTAN POTASSIUM 50 MG TABLET PO SCH (09:15)
[2018-11-10] MEDS: PROBIOTIC PO SCH (09:15)
[2018-11-10] MEDS: [UNRECOGNIZED DRUG - OTHER] PO SCH (09:15)
[2018-11-10] MEDS: MESALAMINE 0.375 GM PO SCH (09:16)
[2018-11-10] MEDS: FLUDROCORTISONE ACETATE 0.1 MG TABLET PO SCH (09:16)
[2018-11-10] MEDS: MEMANTINE HCL 5 MG TABLET PO SCH (09:16)
[2018-11-10] MEDS: [UNRECOGNIZED DRUG - OTHER] PO SCH (09:16)
[2018-11-10] MEDS: SERTRALINE HCL 50 MG TABLET PO SCH (09:19)
[2018-11-10] MEDS: CLOBETASOL PROPIONATE 0.05% OINT 15 GM TUBE TOP SCH (09:24)
[2018-11-10] MEDS ORDERED: DILTIAZEM HCL CD 180 MG CAP.SR.24H PO SCH (11:45)
[2018-11-10] MEDS ORDERED: METOPROLOL TARTRATE 25 MG TABLET PO SCH (14:30)
--- NOTE | 2018-11-10 16:05 | NUR ---
pt will be discharged to telemetry for accelerated hypertension. MD pavon admitting. family agrees to plan of care. all belongings checked. TMS form will be sent to nurse. MD ordered to continue all medications in telemetry. skin issues resolved.
[2018-11-10 16:12] VITALS: BP 168/91
[2018-11-10] MEDS ORDERED: METO25TA6 PO (18:28)
[2018-11-10] MEDS ORDERED: ATOR20TA PO (18:28)
[2018-11-10] MEDS ORDERED: RISP0.2515 PO (18:28)
[2018-11-10] MEDS ORDERED: CLOB15CR4 TP (18:28)
[2018-11-10] MEDS ORDERED: LOSA50TA39 PO (18:28)
[2018-11-10] MEDS ORDERED: CARB-93 PO (18:28)
[2018-11-10] MEDS ORDERED: CLON0.5T12 PO (18:28)
[2018-11-10] MEDS ORDERED: DILT30TA35 PO (18:28)
[2018-11-10] MEDS ORDERED: MAGN400O6 PO (18:28)
[2018-11-10] MEDS ORDERED: MEMA10TA PO (18:28)
[2018-11-10] MEDS ORDERED: DILT180C PO (20:16)
[2018-11-11] MEDS ORDERED: FLUDROCORTISONE ACETATE 0.1 MG TABLET PO SCH (09:00)
[2018-11-13] MEDS ORDERED: LOSA25TA3 PO (13:23)
[2018-11-13] MEDS ORDERED: OLAN5TAB6 PO (13:23)
[2018-11-13] MEDS ORDERED: FLUD0.1T3 PO (13:23)
[2018-11-13] MEDS ORDERED: ATOR10TA PO (13:27)
== END 2018-11-10 16:45 | disposition short-term general hospital (02) | DRG 56 ==
PROVIDERS: ADMIT Physical Medicine & Rehabilitation Pain Medicine; ATTEND Physical Medicine & Rehabilitation Pain Medicine
DX: G20 Parkinson's disease (principal); G93.41 Metabolic encephalopathy; Z68.1 Body mass index [BMI] 19.9 or less, adult; D68.59 Other primary thrombophilia; E27.40 Unspecified adrenocortical insufficiency; D64.9 Anemia, unspecified; D69.6 Thrombocytopenia, unspecified; F29 Unspecified psychosis not due to a substance or known physiological condition; E86.0 Dehydration; F02.80 Dementia in other diseases classified elsewhere, unspecified severity, without behavioral disturbance, psychotic disturbance, mood disturbance, and anxiety; I10 Essential (primary) hypertension; R29.6 Repeated falls; D72.829 Elevated white blood cell count, unspecified; R26.9 Unspecified abnormalities of gait and mobility; E78.5 Hyperlipidemia, unspecified; E87.6 Hypokalemia; F41.9 Anxiety disorder, unspecified; I67.2 Cerebral atherosclerosis; I95.1 Orthostatic hypotension; L21.9 Seborrheic dermatitis, unspecified; R62.7 Adult failure to thrive; Z87.891 Personal history of nicotine dependence; Z90.79 Acquired absence of other genital organ(s); R53.81 Other malaise; T50.995A Adverse effect of other drugs, medicaments and biological substances, initial encounter; Y92.230 Patient room in hospital as the place of occurrence of the external cause
CPT/HCPCS: 36415; 70030-TC; 70450; 71045; 73080; 73502; 82652; 83735; 84100; 84133; 84153; 84300; 84443; 85025; 87086; J7030

== ENCOUNTER 2018-11-10 17:24 | Inpatient (IN) | payer MEDICARE ==
[~2018-11-10] VITALS: Ht 175.3 cm; Wt 62.6 kg
[~2018-11-10 17:24] MED LIST: CARB-93 PO; CARB1TAB40 PO; CHOL20004 PO; CLON0.5T12 PO; CYAN-51 PO; FLUD0.1T PO; LOVA20TA2 PO; MEMA10TA PO; MESA0.37 PO; RASA1TAB4 PO; SACC250C PO; SERT50TA PO
[2018-11-10 17:52] VITALS: BP 155/84
[2018-11-10] MEDS ORDERED: METO25TA6 PO (18:28)
[2018-11-10] MEDS ORDERED: MAGN400O6 PO (18:28)
[2018-11-10] MEDS ORDERED: LOSA50TA39 PO (18:28)
[2018-11-10] MEDS ORDERED: DILT30TA35 PO (18:28)
[2018-11-10] MEDS ORDERED: RISP0.2515 PO (18:28)
[2018-11-10] MEDS ORDERED: CLON0.5T12 PO (18:28)
[2018-11-10] MEDS ORDERED: ATOR20TA PO (18:28)
[2018-11-10] MEDS ORDERED: MEMA10TA PO (18:28)
[2018-11-10] MEDS ORDERED: CARB-93 PO (18:28)
[2018-11-10] MEDS ORDERED: CLOB15CR4 TP (18:28)
[2018-11-10 19:30] VITALS: BP 167/67
[2018-11-10] MEDS ORDERED: ENALAPRILAT DIHYDRATE 1.25 MG/1 ML VIAL IV PRN (19:45)
[2018-11-10] MEDS ORDERED: MAGNESIUM HYDROXIDE 30 ML LIQUID UDC PO PRN (19:45)
[2018-11-10] MEDS ORDERED: DILT180C PO (20:16)
[2018-11-10] MEDS ORDERED: risperiDONE 0.25 MG TABLET PO SCH (21:00)
[2018-11-10] MEDS: CLOBETASOL PROPIONATE 0.05% CREAM 15 GM TUBE TP SCH (21:00)
[2018-11-10] MEDS: METOPROLOL TARTRATE 25 MG TABLET PO SCH (21:00)
[2018-11-10] MEDS: MEMANTINE HCL 10 MG TABLET PO SCH (21:00)
[2018-11-10] MEDS: LOSARTAN POTASSIUM 50 MG TABLET PO SCH (21:00)
[2018-11-10] MEDS: ATORVASTATIN 20 MG TABLET PO SCH (21:00)
[2018-11-11] VITALS (8 sets, daily range): BP systolic 107–174; BP diastolic 53–87
[2018-11-11] MEDS: hydrALAZINE HCL 20 MG/1 ML VIAL IV PRN (00:59)
[2018-11-11 06:43] LABS: BASOPHILS # (AUTO) 0.1 K/uL (0.0-8.0); BASOPHILS % (AUTO) 1.4 % (0.0-2.0); EOSINOPHILS # (AUTO) 0.6 K/uL (0.0-0.7); EOSINOPHILS % (AUTO) 5.6 % (0.0-7.0); HEMATOCRIT 39.9 % (36.7-47.1); HEMOGLOBIN 14.2 g/dL (12.5-16.3); LYMPHOCYTES # (AUTO) 1.2 K/uL (20.0-40.0); MEAN CORPUSCULAR HEMOGLOBIN 33.8 uug (23.8-33.4); MEAN CORPUSCULAR HGB CONC 36 g/dL (32.5-36.3); MEAN CORPUSCULAR VOLUME 94.8 fL (73.0-96.2); MONOCYTES # (AUTO) 0.6 K/uL (2.0-10.0); NEUTROPHILS # (AUTO) 7.5 K/uL (1.8-8.9); PLATELET COUNT (AUTO) 275 K/uL (152-348); RED BLOOD CELL COUNT(AUTO) 4.21 MIL/uL (4.06-5.63)
[2018-11-11 07:05] LABS: ALANINE AMINOTRANSFERASE 25 U/L (16-63); ALKALINE PHOSPHATASE 116 U/L (50-136); ASPARTATE AMINOTRANSFERASE 17 U/L (15-37); BILIRUBIN,TOTAL 0.8 mg/dL (0.2-1.0); CARBON DIOXIDE 29 mmol/L (21-32); CHLORIDE 105 mmol/L (98-107); CREATININE 0.8 mg/dL (0.6-1.3); GLUCOSE 110 mg/dL (74-106); MAGNESIUM 1.9 mg/dL (1.8-2.4); PHOSPHOROUS 2.8 mg/dL (2.5-4.9); POTASSIUM 3.5 mmol/L (3.5-5.1); TOTAL PROTEIN, SERUM 7.4 g/dL (6.4-8.2); UREA NITROGEN, BLOOD 20 mg/dL (7-18)
[2018-11-11] MEDS: MESALAMINE PO SCH (08:00)
[2018-11-11] MEDS: [UNRECOGNIZED DRUG - OTHER] PO SCH (08:00)
[2018-11-11] MEDS: SACCHAROMYCES BOULARDII PO SCH (08:00)
[2018-11-11] MEDS ORDERED: CHOLECALCIFEROL U PO SCH (09:00)
[2018-11-11] MEDS: METOPROLOL TARTRATE 25 MG TABLET PO SCH (09:00)
[2018-11-11] MEDS ORDERED: Medication Not On Formulary EA (Saccharomyces Boulardii (Florastor) 250 MG) PO SCH (09:00)
[2018-11-11] MEDS: CHOLECALCIFEROL 1,000 UNIT TABLET PO SCH (09:00)
[2018-11-11] MEDS: CLOBETASOL PROPIONATE 0.05% CREAM 15 GM TUBE TP SCH ×2 (09:00→21:14)
[2018-11-11] MEDS ORDERED: [UNRECOGNIZED DRUG - OTHER] PO SCH (09:00)
[2018-11-11] MEDS ORDERED: DILTIAZEM HCL 30 MG TABLET PO SCH (09:00)
[2018-11-11] MEDS: SERTRALINE HCL 50 MG TABLET PO SCH (09:00)
[2018-11-11] MEDS ORDERED: MESALAMINE PO SCH (09:00)
[2018-11-11] MEDS: LOSARTAN POTASSIUM 50 MG TABLET PO SCH (09:00)
[2018-11-11] MEDS ORDERED: DILTIAZEM HCL CD 180 MG CAP.SR.24H PO SCH (09:00)
[2018-11-11] MEDS: CARBIDOPA/LEVODOPA 25-100MG TABLET PO SCH ×3 (09:00→16:30)
[2018-11-11] MEDS: MEMANTINE HCL 10 MG TABLET PO SCH ×2 (09:00→20:42)
[2018-11-11] MEDS ORDERED: ZIPRASIDONE MESYLATE 20 MG VIAL IM PRN (10:30)
[2018-11-11] MEDS: FLUDROCORTISONE ACETATE 0.1 MG TABLET PO SCH ×2 (12:38→16:30)
[2018-11-11] MEDS: RASAGILINE MESYLATE 1 MG PO SCH (14:32)
[2018-11-11] MEDS ORDERED: Medication Not On Formulary EA (Rasagiline Mesylate 1 MG) PO SCH (15:30)
[2018-11-11] MEDS: OLANZAPINE ZYDIS 5 MG TAB.RAPDIS PO SCH (16:30)
[2018-11-11 17:53] LABS: *BILIRUBIN,URIN 1+ (NEGATIVE); *BLOOD, URINE NEGATIVE (NEGATIVE); *CLARITY,URINE CLEAR (CLEAR); *KETONES,URINE TRACE (NEGATIVE); *UROBILINOGEN,URINE 0.2 E.U./dl (NORMAL); LEUKOCYTE ESTERASE ,URINE NEGATIVE (NEGATIVE); NITRITE, URINE NEGATIVE (NEGATIVE); UGLUCOSE NEGATIVE (NEGATIVE)
[2018-11-11 18:05] LABS: *COLOR,URINE DARK YELLOW (YELLOW)
[2018-11-11 18:07] LABS: MUCUS,URINE MANY /LPF (0-FEW); RBC,URINE 0-3 /HPF (0-3)
[2018-11-11] MEDS: CARBIDOPA/LEVODOPA CR 50-200MG TABLET.SA PO SCH (20:41)
[2018-11-11] MEDS: LOSARTAN POTASSIUM 25 MG TABLET PO SCH (20:42)
[2018-11-11] MEDS: ATORVASTATIN 20 MG TABLET PO SCH (20:42)
[2018-11-11] MEDS ORDERED: LOSARTAN POTASSIUM 50 MG TABLET PO SCH (21:00)
[2018-11-11] MEDS: CLONAZEPAM 0.5 MG TABLET PO SCH (22:06)
[2018-11-12 05:30] VITALS: BP 178/86
[2018-11-12] MEDS: hydrALAZINE HCL 20 MG/1 ML VIAL IV PRN (06:40)
[2018-11-12 07:00] VITALS: BP 133/53
[2018-11-12] MEDS ORDERED: CYANOCOBALAMIN 1,000 MCG TABLET PO SCH (09:00)
[2018-11-12] MEDS: MESALAMINE PO SCH (09:04)
[2018-11-12] MEDS: SACCHAROMYCES BOULARDII PO SCH (09:04)
[2018-11-12] MEDS: [UNRECOGNIZED DRUG - OTHER] PO SCH (09:04)
[2018-11-12] MEDS: LOSARTAN POTASSIUM 25 MG TABLET PO SCH ×2 (09:05→20:37)
[2018-11-12] MEDS: CHOLECALCIFEROL 1,000 UNIT TABLET PO SCH (09:06)
[2018-11-12] MEDS: OLANZAPINE ZYDIS 5 MG TAB.RAPDIS PO SCH ×2 (09:06→17:28)
[2018-11-12] MEDS: FLUDROCORTISONE ACETATE 0.1 MG TABLET PO SCH ×2 (09:06→17:27)
[2018-11-12] MEDS: MEMANTINE HCL 10 MG TABLET PO SCH ×2 (09:06→20:27)
[2018-11-12] MEDS: CARBIDOPA/LEVODOPA 25-100MG TABLET PO SCH ×3 (09:06→17:27)
[2018-11-12] MEDS: RASAGILINE MESYLATE 1 MG PO SCH (09:07)
[2018-11-12] MEDS: CLOBETASOL PROPIONATE 0.05% CREAM 15 GM TUBE TP SCH ×2 (09:07→20:32)
[2018-11-12] MEDS: SERTRALINE HCL 50 MG TABLET PO SCH (09:07)
[2018-11-12 11:16] VITALS: BP 91/55
[2018-11-12 15:08] VITALS: BP 93/45
[2018-11-12] MEDS ORDERED: IV NORMAL SALINE 500 ML IV ONE (15:30)
[2018-11-12 16:01] VITALS: BP 102/50
[2018-11-12] MEDS: ATORVASTATIN 20 MG TABLET PO SCH (20:28)
[2018-11-12 20:31] VITALS: BP 103/52
[2018-11-12] MEDS: CARBIDOPA/LEVODOPA CR 50-200MG TABLET.SA PO SCH (20:31)
[2018-11-12] MEDS: CLONAZEPAM 0.5 MG TABLET PO SCH (22:37)
[2018-11-13] MEDS: hydrALAZINE HCL 20 MG/1 ML VIAL IV PRN (05:01)
[2018-11-13 06:05] LABS: BASOPHILS # (AUTO) 0.1 K/uL (0.0-8.0); BASOPHILS % (AUTO) 1.1 % (0.0-2.0); EOSINOPHILS # (AUTO) 0.9 K/uL (0.0-0.7); EOSINOPHILS % (AUTO) 10.8 % (0.0-7.0); HEMATOCRIT 42.2 % (36.7-47.1); HEMOGLOBIN 14.3 g/dL (12.5-16.3); LYMPHOCYTES # (AUTO) 1.1 K/uL (20.0-40.0); LYMPHOCYTES % (AUTO) 13.6 % (20.5-51.5); MEAN CORPUSCULAR HEMOGLOBIN 32.1 uug (23.8-33.4); MEAN CORPUSCULAR HGB CONC 34 g/dL (32.5-36.3); MEAN CORPUSCULAR VOLUME 94.8 fL (73.0-96.2); MONOCYTES # (AUTO) 0.5 K/uL (2.0-10.0); MONOCYTES % (AUTO) 5.6 % (0.0-11.0); NEUTROPHILS # (AUTO) 5.7 K/uL (1.8-8.9); NEUTROPHILS % (AUTO) 68.9 % (38.5-71.5); PLATELET COUNT (AUTO) 235 K/uL (152-348); RED BLOOD CELL COUNT(AUTO) 4.45 MIL/uL (4.06-5.63); WHITE BLOOD COUNT (AUTO) 8.3 K/uL (3.6-10.2)
[2018-11-13 06:12] VITALS: BP 176/77
[2018-11-13 06:16] LABS: ALANINE AMINOTRANSFERASE < 6 U/L (16-63); ALKALINE PHOSPHATASE 110 U/L (50-136); ASPARTATE AMINOTRANSFERASE 12 U/L (15-37); BILIRUBIN,TOTAL 0.7 mg/dL (0.2-1.0); CARBON DIOXIDE 32 mmol/L (21-32); CHLORIDE 107 mmol/L (98-107); GLUCOSE 110 mg/dL (74-106); MAGNESIUM 2.1 mg/dL (1.8-2.4); PHOSPHOROUS 3.3 mg/dL (2.5-4.9); POTASSIUM 3.3 mmol/L (3.5-5.1); TOTAL PROTEIN, SERUM 6.9 g/dL (6.4-8.2); UREA NITROGEN, BLOOD 29 mg/dL (7-18)
[2018-11-13] MEDS ORDERED: POTASSIUM CHLORIDE 20 MEQ TAB.PRT.SR PO ONE (07:45)
[2018-11-13 08:03] VITALS: BP 126/57
[2018-11-13] MEDS: MESALAMINE PO SCH (08:06)
[2018-11-13] MEDS: [UNRECOGNIZED DRUG - OTHER] PO SCH (08:07)
[2018-11-13] MEDS: SACCHAROMYCES BOULARDII PO SCH (08:07)
[2018-11-13] MEDS: CHOLECALCIFEROL 1,000 UNIT TABLET PO SCH (08:08)
[2018-11-13] MEDS: CARBIDOPA/LEVODOPA 25-100MG TABLET PO SCH ×2 (08:08→12:37)
[2018-11-13] MEDS: MEMANTINE HCL 10 MG TABLET PO SCH (08:08)
[2018-11-13] MEDS: SERTRALINE HCL 50 MG TABLET PO SCH (08:09)
[2018-11-13] MEDS: OLANZAPINE ZYDIS 5 MG TAB.RAPDIS PO SCH (08:09)
[2018-11-13] MEDS: CLOBETASOL PROPIONATE 0.05% CREAM 15 GM TUBE TP SCH (08:09)
[2018-11-13] MEDS: LOSARTAN POTASSIUM 25 MG TABLET PO SCH (08:34)
[2018-11-13] MEDS ORDERED: FLUDROCORTISONE ACETATE 0.1 MG TABLET PO SCH (09:00)
[2018-11-13 09:22] VITALS: BP_SYST 113; BP_SYST 70; BP_SYST 91; BP_DIAS 34; BP_DIAS 39; BP_DIAS 61
[2018-11-13 11:00] VITALS: BP 99/48
[2018-11-13] MEDS ORDERED: FLUD0.1T3 PO (13:23)
[2018-11-13] MEDS ORDERED: LOSA25TA3 PO (13:23)
[2018-11-13] MEDS ORDERED: OLAN5TAB6 PO (13:23)
[2018-11-13] MEDS ORDERED: ATOR10TA PO (13:27)
[2018-11-13] MEDS: RASAGILINE MESYLATE 1 MG PO SCH (15:23)
== END 2018-11-13 15:45 | disposition home health service (06) | DRG 57 ==
LOC: MEDSURG3 17:24 → TELE3 17:30 → MEDSURG3 11-11 11:06
PROVIDERS: ADMIT Internal Medicine; ATTEND Internal Medicine
DX: G20 Parkinson's disease (principal); F02.81 Dementia in other diseases classified elsewhere, unspecified severity, with behavioral disturbance; F06.8 Other specified mental disorders due to known physiological condition; I16.1 Hypertensive emergency; D68.59 Other primary thrombophilia; E46 Unspecified protein-calorie malnutrition; F03.91 Unspecified dementia, unspecified severity, with behavioral disturbance; G90.8 Other disorders of autonomic nervous system; R62.7 Adult failure to thrive; R93.0 Abnormal findings on diagnostic imaging of skull and head, not elsewhere classified; E86.0 Dehydration; I67.2 Cerebral atherosclerosis; L21.9 Seborrheic dermatitis, unspecified; Z87.891 Personal history of nicotine dependence; Z66 Do not resuscitate; E87.6 Hypokalemia; I95.1 Orthostatic hypotension; G90.9 Disorder of the autonomic nervous system, unspecified; N40.0 Benign prostatic hyperplasia without lower urinary tract symptoms; F41.9 Anxiety disorder, unspecified; E78.5 Hyperlipidemia, unspecified; Z79.899 Other long term (current) drug therapy; M81.0 Age-related osteoporosis without current pathological fracture; M19.90 Unspecified osteoarthritis, unspecified site; Z90.79 Acquired absence of other genital organ(s); Z98.49 Cataract extraction status, unspecified eye
CPT/HCPCS: 36415; 70030-TC; 83735; 84100; 85025; 87086; G0378; J0360; J3486; J3490; J7030

== ENCOUNTER 2018-11-26 14:00 | Inpatient (IN) | payer MEDICARE ==
[~2018-11-26] VITALS: Ht 162.6 cm; Wt 60.1 kg
[~2018-11-26 14:00] MED LIST changes: +ATOR10TA PO; +ATOR20TA PO; +CLOB15CR4 TP; +DILT180C PO; -FLUD0.1T PO; +FLUD0.1T3 PO; +LOSA25TA3 PO; +LOSA50TA39 PO; -LOVA20TA2 PO; +MAGN400O6 PO; +METO25TA6 PO; +OLAN5TAB6 PO; +RISP0.2515 PO
[2018-11-26] MEDS ORDERED: LOVA20TA2 PO (14:45)
[2018-11-26] MEDS ORDERED: CARB-113 PO (14:45)
[2018-11-26] MEDS ORDERED: ATOR10TA PO (14:45)
[2018-11-26] MEDS ORDERED: CARB-93 PO (14:45)
[2018-11-26] MEDS ORDERED: SERT50TA PO (14:45)
[2018-11-26] MEDS ORDERED: MESA0.37 PO (14:45)
[2018-11-26] MEDS ORDERED: CEFTRIAXONE 1 G in IV DEXTROSE 5% 50 ML IV ONE (14:45)
[2018-11-26] MEDS ORDERED: IV NORMAL SALINE 1000 ML BAG IV ONE (14:45)
[2018-11-26] MEDS ORDERED: OLAN2.5T3 PO (14:45)
[2018-11-26] MEDS ORDERED: CLON0.1T PO (14:45)
[2018-11-26] MEDS ORDERED: CLON0.5T12 PO (14:45)
[2018-11-26] MEDS ORDERED: SENN-148 PO (14:45)
[2018-11-26] MEDS ORDERED: MELA10TA3 PO (14:45)
[2018-11-26] MEDS ORDERED: CHOL200078 PO (14:45)
[2018-11-26] MEDS ORDERED: CYAN100T3 PO (14:45)
[2018-11-26] MEDS ORDERED: DOCU100T PO (14:45)
[2018-11-26] MEDS ORDERED: RASA1TAB4 PO (14:45)
[2018-11-26] MEDS ORDERED: FLUD0.1T PO (14:45)
[2018-11-26] MEDS ORDERED: BIFI1CAP PO (14:45)
[2018-11-26] MEDS ORDERED: MEMA5TAB PO (14:45)
[2018-11-26] MEDS ORDERED: LOSA25TA27 PO (14:45)
[2018-11-26] MEDS ORDERED: VANCOMYCIN IV 1,000 MG in IV DEXTROSE 5% 250 ML IV ONE (14:45)
[2018-11-26 15:02] LABS: CARBON DIOXIDE 32 mmol/L (21-32); CHLORIDE 106 mmol/L (98-107); CREATININE 1.3 mg/dL (0.6-1.3); GLUCOSE 130 mg/dL (74-106); POTASSIUM 3.8 mmol/L (3.5-5.1); UREA NITROGEN, BLOOD 29 mg/dL (7-18)
[2018-11-26 15:04] LABS: BASOPHILS # (AUTO) 0.1 K/uL (0.0-8.0); BASOPHILS % (AUTO) 0.6 % (0.0-2.0); EOSINOPHILS # (AUTO) 0.2 K/uL (0.0-0.7); EOSINOPHILS % (AUTO) 1.1 % (0.0-7.0); HEMATOCRIT 37.5 % (36.7-47.1); HEMOGLOBIN 12.6 g/dL (12.5-16.3); LYMPHOCYTES # (AUTO) 0.5 K/uL (20.0-40.0); LYMPHOCYTES % (AUTO) 3.2 % (20.5-51.5); MEAN CORPUSCULAR HEMOGLOBIN 31.8 uug (23.8-33.4); MEAN CORPUSCULAR HGB CONC 34 g/dL (32.5-36.3); MEAN CORPUSCULAR VOLUME 94.7 fL (73.0-96.2); MONOCYTES # (AUTO) 0.8 K/uL (2.0-10.0); MONOCYTES % (AUTO) 5.8 % (0.0-11.0); NEUTROPHILS # (AUTO) 12.7 K/uL (1.8-8.9); NEUTROPHILS % (AUTO) 89.3 % (38.5-71.5); PLATELET COUNT (AUTO) 249 K/uL (152-348); RED BLOOD CELL COUNT(AUTO) 3.96 MIL/uL (4.06-5.63); WHITE BLOOD COUNT (AUTO) 14.2 K/uL (3.6-10.2)
[2018-11-26] MEDS ORDERED: VANCOMYCIN IV 200 ML ONE (15:08)
[2018-11-26] MEDS ORDERED: CEFTRIAXONE 1 G VIAL ONE (15:08)
[2018-11-26 15:09] LABS: ETHANOL < 3 MG/DL (0-0)
[2018-11-26 15:17] LABS: ALANINE AMINOTRANSFERASE 6 U/L (16-63); ALKALINE PHOSPHATASE 108 U/L (50-136); ASPARTATE AMINOTRANSFERASE 18 U/L (15-37); BILIRUBIN,DIRECT 0.2 mg/dL (0.0-0.2); BILIRUBIN,TOTAL 0.8 mg/dL (0.2-1.0); TOTAL PROTEIN, SERUM 6.7 g/dL (6.4-8.2)
[2018-11-26 15:18] LABS: ACETAMINOPHEN < 2.0 ug/mL (10-30)
[2018-11-26 15:30] LABS: THYROID STIMULATING HORMONE 2.965 mIU/mL (0.358-3.740)
[2018-11-26 16:33] LABS: *BILIRUBIN,URIN 1+ (NEGATIVE); *BLOOD, URINE NEGATIVE (NEGATIVE); *CLARITY,URINE CLEAR (CLEAR); *COLOR,URINE DARK YELLOW (YELLOW); *KETONES,URINE NEGATIVE (NEGATIVE); *UROBILINOGEN,URINE 0.2 E.U./dl (NORMAL); LEUKOCYTE ESTERASE ,URINE NEGATIVE (NEGATIVE); NITRITE, URINE NEGATIVE (NEGATIVE); UGLUCOSE NEGATIVE (NEGATIVE)
[2018-11-26 16:45] LABS: *AMPHETAMINE, URINE NEGATIVE (NEGATIVE); *BARBITURATE, URINE NEGATIVE (NEGATIVE); *CANNABINOID, URINE NEGATIVE (NEGATIVE); *COCCAINE, URINE NEGATIVE (NEGATIVE); *OPIATE, URINE NEGATIVE (NEGATIVE); *PHENCYCLIDINE SCREEN,URINE NEGATIVE (NEGATIVE); CALCIUM OXALATE CRYSTALS,UR RARE /HPF (NONE SEEN); RBC,URINE 0-3 /HPF (0-3); WBC,URINE 0-3 /HPF (0-3)
[2018-11-26 16:46] LABS: MUCUS,URINE MANY /LPF (0-FEW)
[2018-11-26] MEDS ORDERED: ACETAMINOPHEN 325 MG TABLET PO PRN (19:30)
[2018-11-26] MEDS ORDERED: Z GUARD REMEDY PASTE 57 GM TUBE TOP PRN (19:30)
[2018-11-26] MEDS ORDERED: ZOLPIDEM 5 MG TABLET PO PRN (19:30)
[2018-11-26] MEDS ORDERED: ONDANSETRON 4 MG/2 ML VIAL IV PRN (19:30)
[2018-11-26] MEDS ORDERED: MAGNESIUM HYDROXIDE 30 ML LIQUID UDC PO PRN (19:30)
[2018-11-26 20:20] VITALS: BP 175/89
[2018-11-26] MEDS: LORAZEPAM 2 MG/1 ML VIAL IV PRN (21:40)
[2018-11-26] MEDS ORDERED: CLONIDINE HCL 0.1 MG TABLET PO SCH (22:00)
[2018-11-26] MEDS ORDERED: MELATONIN 3 MG TABLET PO SCH (22:00)
[2018-11-26] MEDS: ATORVASTATIN 10 MG TABLET PO SCH (22:00)
[2018-11-26] MEDS: CLONAZEPAM 1 MG TABLET PO SCH (22:00)
[2018-11-26] MEDS: SENNOSIDES 1 TABLET PO SCH (22:00)
[2018-11-27] VITALS (7 sets, daily range): BP systolic 130–185; BP diastolic 62–90
[2018-11-27 04:18] LABS: BASOPHILS # (AUTO) 0.1 K/uL (0.0-8.0); BASOPHILS % (AUTO) 0.9 % (0.0-2.0); EOSINOPHILS # (AUTO) 0.6 K/uL (0.0-0.7); EOSINOPHILS % (AUTO) 7.3 % (0.0-7.0); HEMATOCRIT 36.6 % (36.7-47.1); HEMOGLOBIN 12.8 g/dL (12.5-16.3); LYMPHOCYTES # (AUTO) 1.1 K/uL (20.0-40.0); LYMPHOCYTES % (AUTO) 13.1 % (20.5-51.5); MEAN CORPUSCULAR HEMOGLOBIN 33.3 uug (23.8-33.4); MEAN CORPUSCULAR HGB CONC 35 g/dL (32.5-36.3); MEAN CORPUSCULAR VOLUME 94.8 fL (73.0-96.2); MONOCYTES # (AUTO) 0.6 K/uL (2.0-10.0); MONOCYTES % (AUTO) 6.5 % (0.0-11.0); NEUTROPHILS # (AUTO) 6.2 K/uL (1.8-8.9); NEUTROPHILS % (AUTO) 72.2 % (38.5-71.5); PLATELET COUNT (AUTO) 230 K/uL (152-348); RED BLOOD CELL COUNT(AUTO) 3.86 MIL/uL (4.06-5.63); WHITE BLOOD COUNT (AUTO) 8.7 K/uL (3.6-10.2)
[2018-11-27 04:27] LABS: CREATININE 1.1 mg/dL (0.6-1.3); MAGNESIUM 1.9 mg/dL (1.8-2.4); PHOSPHOROUS 3.6 mg/dL (2.5-4.9); POTASSIUM 3.5 mmol/L (3.5-5.1)
[2018-11-27] MEDS ORDERED: BIFIDOBACTERIUM INFANTIS PO SCH (09:45)
[2018-11-27] MEDS ORDERED: Medication Not On Formulary EA (Docusate Sodium (Dok TABLET) 100 MG) PO SCH (09:45)
[2018-11-27] MEDS ORDERED: Medication Not On Formulary EA (Rasagiline Mesylate 1 MG) PO SCH (09:45)
[2018-11-27] MEDS ORDERED: LOSARTAN POTASSIUM 25 MG TABLET PO SCH (09:45)
[2018-11-27] MEDS ORDERED: Medication Not On Formulary EA (Melatonin 10 MG) PO SCH (09:45)
[2018-11-27] MEDS ORDERED: MESALAMINE PO SCH (09:45)
[2018-11-27] MEDS ORDERED: CLONIDINE HCL 0.1 MG TABLET PO PRN (09:45)
[2018-11-27] MEDS: Z GUARD REMEDY PASTE 57 GM TUBE TOP SCH ×2 (10:02→20:09)
[2018-11-27] MEDS: LOSARTAN POTASSIUM 50 MG TABLET PO SCH ×2 (10:02→20:10)
[2018-11-27] MEDS ORDERED: CYANOCOBALAMIN 100 MCG TABLET PO SCH (10:12)
[2018-11-27] MEDS: OLANZAPINE 2.5 MG TABLET PO SCH ×2 (10:31→17:21)
[2018-11-27] MEDS: FLUDROCORTISONE ACETATE 0.1 MG TABLET PO SCH (10:31)
[2018-11-27] MEDS: SERTRALINE HCL 50 MG TABLET PO SCH (10:31)
[2018-11-27] MEDS: MEMANTINE HCL 5 MG TABLET PO SCH ×2 (10:31→17:21)
[2018-11-27] MEDS: CARBIDOPA/LEVODOPA 25-100MG TABLET PO SCH ×3 (10:47→17:21)
[2018-11-27] MEDS: CHOLECALCIFEROL 1,000 UNIT TABLET PO SCH (10:47)
[2018-11-27] MEDS: CYANOCOBALAMIN 1,000 MCG TABLET PO SCH (11:41)
[2018-11-27] MEDS: DOCUSATE SODIUM 100 MG CAPSULE PO SCH ×2 (11:41→17:20)
[2018-11-27] MEDS: LORAZEPAM 2 MG/1 ML VIAL IV PRN (17:15)
[2018-11-27] MEDS: CLOTRIMAZOLE 1% CREAM 30 GM TUBE TOP SCH (17:22)
[2018-11-27 17:32] LABS: *BILIRUBIN,URIN NEGATIVE (NEGATIVE); *BLOOD, URINE NEGATIVE (NEGATIVE); *CLARITY,URINE CLEAR (CLEAR); *COLOR,URINE YELLOW (YELLOW); *KETONES,URINE TRACE (NEGATIVE); *UROBILINOGEN,URINE 0.2 E.U./dl (NORMAL); LEUKOCYTE ESTERASE ,URINE NEGATIVE (NEGATIVE); NITRITE, URINE NEGATIVE (NEGATIVE); UGLUCOSE TRACE (NEGATIVE)
[2018-11-27 17:48] LABS: *CREATININE,URINE 136.7 mg/dL (30-125); *URINE TOTAL PROTEIN RANDOM 36.5 mg/dL (<150/24HR)
[2018-11-27 18:35] LABS: MUCUS,URINE MANY /LPF (0-FEW); RBC,URINE 0-3 /HPF (0-3); SQUAMOUS EPITHELIAL CELL,UR FEW /HPF (NONE SEEN)
[2018-11-27] MEDS: CLONAZEPAM 1 MG TABLET PO SCH (20:08)
[2018-11-27] MEDS: ATORVASTATIN 10 MG TABLET PO SCH (20:08)
[2018-11-27] MEDS: SENNOSIDES 1 TABLET PO SCH (20:09)
[2018-11-27] MEDS ORDERED: [UNRECOGNIZED DRUG - OTHER] PO SCH (21:00)
[2018-11-27] MEDS ORDERED: MELATONIN 3 MG TABLET PO SCH (21:00)
[2018-11-27] MEDS ORDERED: LEVODOPA PO SCH (21:00)
[2018-11-27] MEDS ORDERED: ENTACAPONE PO SCH (21:00)
[2018-11-27] MEDS ORDERED: CLONAZEPAM 0.5 MG TABLET PO SCH (21:00)
[2018-11-27] MEDS ORDERED: ATORVASTATIN 10 MG TABLET PO SCH (21:00)
[2018-11-27] MEDS ORDERED: SENNOSIDES 1 TABLET PO SCH (21:00)
[2018-11-27] MEDS ORDERED: CARBIDOPA PO SCH (21:00)
[2018-11-28] MEDS ORDERED: ZOLPIDEM 5 MG TABLET PO PRN ×2 (07:15→11:30)
[2018-11-28] MEDS: DOCUSATE SODIUM 100 MG CAPSULE PO SCH ×2 (08:00→16:53)
[2018-11-28] MEDS: FLUDROCORTISONE ACETATE 0.1 MG TABLET PO SCH (08:01)
[2018-11-28] MEDS: LOSARTAN POTASSIUM 50 MG TABLET PO SCH ×2 (08:01→20:19)
[2018-11-28] MEDS: CHOLECALCIFEROL 1,000 UNIT TABLET PO SCH (08:01)
[2018-11-28] MEDS: CARBIDOPA/LEVODOPA 25-100MG TABLET PO SCH ×3 (08:01→16:53)
[2018-11-28] MEDS: MEMANTINE HCL 5 MG TABLET PO SCH ×2 (08:01→16:53)
[2018-11-28] MEDS: CYANOCOBALAMIN 1,000 MCG TABLET PO SCH (08:02)
[2018-11-28] MEDS: Z GUARD REMEDY PASTE 57 GM TUBE TOP SCH ×2 (08:02→21:46)
[2018-11-28] MEDS: OLANZAPINE 2.5 MG TABLET PO SCH ×2 (08:02→16:53)
[2018-11-28] MEDS: CLOTRIMAZOLE 1% CREAM 30 GM TUBE TOP SCH ×2 (08:02→16:53)
[2018-11-28] MEDS: SERTRALINE HCL 50 MG TABLET PO SCH (08:02)
[2018-11-28] MEDS ORDERED: CARB-96 PO (10:34)
[2018-11-28] MEDS: APRISO 0.375 GM PO SCH (11:12)
[2018-11-28] MEDS: RASAGILINE MESYLATE 1 MG PO SCH (11:12)
[2018-11-28] MEDS: DIGESTIVE PROBIOTIC PO SCH (11:12)
[2018-11-28 12:00] VITALS: BP 162/84
[2018-11-28] MEDS: CLONIDINE HCL 0.1 MG TABLET PO PRN (12:49)
[2018-11-28 16:00] VITALS: BP 104/60
[2018-11-28] MEDS: LORAZEPAM 2 MG/1 ML VIAL IV PRN (17:30)
[2018-11-28] MEDS: CLONAZEPAM 1 MG TABLET PO SCH (20:18)
[2018-11-28] MEDS: ATORVASTATIN 10 MG TABLET PO SCH (20:18)
[2018-11-28] MEDS: CARBIDOPA/LEVODOPA CR 50-200MG TABLET.SA PO SCH (20:18)
[2018-11-28] MEDS: SENNOSIDES 1 TABLET PO SCH (20:18)
[2018-11-28] MEDS: MELATONIN 10MG PO SCH (20:19)
[2018-11-29] MEDS: LORAZEPAM 2 MG/1 ML VIAL IV PRN (01:51)
[2018-11-29 07:40] VITALS: BP 168/78
[2018-11-29] MEDS: FLUDROCORTISONE ACETATE 0.1 MG TABLET PO SCH (09:40)
[2018-11-29] MEDS: APRISO 0.375 GM PO SCH (09:40)
[2018-11-29] MEDS: MEMANTINE HCL 5 MG TABLET PO SCH ×2 (09:40→16:32)
[2018-11-29] MEDS: LOSARTAN POTASSIUM 50 MG TABLET PO SCH ×2 (09:40→20:40)
[2018-11-29] MEDS: OLANZAPINE 2.5 MG TABLET PO SCH ×2 (09:41→16:32)
[2018-11-29] MEDS: CLOTRIMAZOLE 1% CREAM 30 GM TUBE TOP SCH ×2 (09:42→16:36)
[2018-11-29] MEDS: Z GUARD REMEDY PASTE 57 GM TUBE TOP SCH ×2 (09:42→20:55)
[2018-11-29] MEDS: CARBIDOPA/LEVODOPA 25-100MG TABLET PO SCH ×3 (09:43→16:32)
[2018-11-29] MEDS: SERTRALINE HCL 50 MG TABLET PO SCH (09:43)
[2018-11-29] MEDS: RASAGILINE MESYLATE 1 MG PO SCH (09:43)
[2018-11-29] MEDS: DIGESTIVE PROBIOTIC PO SCH (09:45)
[2018-11-29] MEDS: DOCUSATE SODIUM 100 MG CAPSULE PO SCH ×2 (09:46→16:32)
[2018-11-29] MEDS: CHOLECALCIFEROL 1,000 UNIT TABLET PO SCH (09:47)
[2018-11-29] MEDS: CYANOCOBALAMIN 1,000 MCG TABLET PO SCH (09:47)
[2018-11-29 11:31] VITALS: BP 152/79
[2018-11-29] MEDS: CEFTRIAXONE 1 G in IV DEXTROSE 5% 50 ML IV SCH (14:21)
[2018-11-29 15:20] VITALS: BP 134/67
[2018-11-29 20:02] VITALS: BP 175/92
[2018-11-29] MEDS: CLONAZEPAM 1 MG TABLET PO SCH (20:39)
[2018-11-29] MEDS: ATORVASTATIN 10 MG TABLET PO SCH (20:40)
[2018-11-29] MEDS: SENNOSIDES 1 TABLET PO SCH (20:40)
[2018-11-29] MEDS: CARBIDOPA/LEVODOPA CR 50-200MG TABLET.SA PO SCH (20:40)
[2018-11-29] MEDS: MELATONIN 10MG PO SCH (20:44)
[2018-11-30] MEDS: CLONIDINE HCL 0.1 MG TABLET PO PRN (06:43)
[2018-11-30 06:48] VITALS: BP 194/93
[2018-11-30 07:19] LABS: BASOPHILS # (AUTO) 0.1 K/uL (0.0-8.0); EOSINOPHILS # (AUTO) 0.8 K/uL (0.0-0.7); HEMOGLOBIN 14.6 g/dL (12.5-16.3); MONOCYTES # (AUTO) 0.4 K/uL (2.0-10.0); NEUTROPHILS # (AUTO) 3.4 K/uL (1.8-8.9)
[2018-11-30 07:27] LABS: ALANINE AMINOTRANSFERASE < 6 U/L (16-63); ALKALINE PHOSPHATASE 117 U/L (50-136); ASPARTATE AMINOTRANSFERASE 17 U/L (15-37); BILIRUBIN,TOTAL 0.6 mg/dL (0.2-1.0); CARBON DIOXIDE 35 mmol/L (21-32); CHLORIDE 104 mmol/L (98-107); GLUCOSE 108 mg/dL (74-106); MAGNESIUM 1.8 mg/dL (1.8-2.4); PHOSPHOROUS 3.6 mg/dL (2.5-4.9); POTASSIUM 3.2 mmol/L (3.5-5.1); TOTAL PROTEIN, SERUM 7.7 g/dL (6.4-8.2); UREA NITROGEN, BLOOD 18 mg/dL (7-18)
[2018-11-30 07:33] LABS: BASOPHILS % (AUTO) 1.5 % (0.0-2.0); EOSINOPHILS % (AUTO) 13.3 % (0.0-7.0); HEMATOCRIT 41.7 % (36.7-47.1); LYMPHOCYTES # (AUTO) 1.1 K/uL (20.0-40.0); LYMPHOCYTES % (AUTO) 19.1 % (20.5-51.5); MEAN CORPUSCULAR HEMOGLOBIN 32.3 uug (23.8-33.4); MEAN CORPUSCULAR HGB CONC 35 g/dL (32.5-36.3); MEAN CORPUSCULAR VOLUME 92.2 fL (73.0-96.2); MONOCYTES % (AUTO) 7.2 % (0.0-11.0); NEUTROPHILS % (AUTO) 58.9 % (38.5-71.5); PLATELET COUNT (AUTO) 209 K/uL (152-348); RED BLOOD CELL COUNT(AUTO) 4.53 MIL/uL (4.06-5.63)
[2018-11-30 07:36] LABS: WHITE BLOOD COUNT (AUTO) 5.7 K/uL (3.6-10.2)
[2018-11-30] MEDS: DOCUSATE SODIUM 100 MG CAPSULE PO SCH ×2 (08:15→16:11)
[2018-11-30] MEDS: LOSARTAN POTASSIUM 50 MG TABLET PO SCH (08:16)
[2018-11-30] MEDS: FLUDROCORTISONE ACETATE 0.1 MG TABLET PO SCH (08:16)
[2018-11-30] MEDS: APRISO 0.375 GM PO SCH (08:17)
[2018-11-30] MEDS: CYANOCOBALAMIN 1,000 MCG TABLET PO SCH (08:17)
[2018-11-30] MEDS: RASAGILINE MESYLATE 1 MG PO SCH (08:17)
[2018-11-30] MEDS: CARBIDOPA/LEVODOPA 25-100MG TABLET PO SCH ×3 (08:17→16:11)
[2018-11-30] MEDS: MEMANTINE HCL 5 MG TABLET PO SCH ×2 (08:17→16:11)
[2018-11-30] MEDS: DIGESTIVE PROBIOTIC PO SCH (08:17)
[2018-11-30] MEDS: CLOTRIMAZOLE 1% CREAM 30 GM TUBE TOP SCH ×2 (08:18→16:12)
[2018-11-30] MEDS: CHOLECALCIFEROL 1,000 UNIT TABLET PO SCH (08:18)
[2018-11-30] MEDS: SERTRALINE HCL 50 MG TABLET PO SCH (08:18)
[2018-11-30] MEDS: OLANZAPINE 2.5 MG TABLET PO SCH ×2 (08:18→16:11)
[2018-11-30] MEDS: Z GUARD REMEDY PASTE 57 GM TUBE TOP SCH (08:19)
[2018-11-30 09:00] VITALS: BP 143/68
[2018-11-30] MEDS ORDERED: POTASSIUM CHLORIDE 20 MEQ TAB.PRT.SR PO ONE (10:15)
[2018-11-30] MEDS ORDERED: AMLODIPINE 5 MG TABLET PO SCH (11:15)
[2018-11-30 11:23] VITALS: BP 154/76
[2018-11-30] MEDS: CEFTRIAXONE 1 G in IV DEXTROSE 5% 50 ML IV SCH (13:40)
[2018-11-30] MEDS ORDERED: AMLO5TAB9 PO (13:46)
[2018-11-30 15:12] VITALS: BP 134/65
== END 2018-11-30 17:15 | DRG 193 ==
LOC: ER 14:00 → TELE3 18:20 → UNDODISIN 11-28 11:21 → MEDSURG3 11-29 13:25
PROVIDERS: ADMIT Internal Medicine; ATTEND Internal Medicine
DX: J15.9 Unspecified bacterial pneumonia (principal); G92 Toxic encephalopathy; N17.0 Acute kidney failure with tubular necrosis; D68.59 Other primary thrombophilia; G90.8 Other disorders of autonomic nervous system; I95.1 Orthostatic hypotension; G20 Parkinson's disease; F02.80 Dementia in other diseases classified elsewhere, unspecified severity, without behavioral disturbance, psychotic disturbance, mood disturbance, and anxiety; M50.31 Other cervical disc degeneration, high cervical region; M48.02 Spinal stenosis, cervical region; Z74.09 Other reduced mobility; F32.9 Major depressive disorder, single episode, unspecified; F41.9 Anxiety disorder, unspecified; R62.7 Adult failure to thrive; Z68.22 Body mass index [BMI] 22.0-22.9, adult; R94.02 Abnormal brain scan; Z90.79 Acquired absence of other genital organ(s); Z87.891 Personal history of nicotine dependence; N40.0 Benign prostatic hyperplasia without lower urinary tract symptoms; I67.2 Cerebral atherosclerosis; E86.0 Dehydration; E78.5 Hyperlipidemia, unspecified; I10 Essential (primary) hypertension; Z79.899 Other long term (current) drug therapy; Z79.52 Long term (current) use of systemic steroids; L21.9 Seborrheic dermatitis, unspecified; M81.0 Age-related osteoporosis without current pathological fracture; R94.31 Abnormal electrocardiogram [ECG] [EKG]
CPT/HCPCS: 36415; 70030-TC; 70450; 71045; 72125; 80307; 83605; 83735; 84100; 84156; 84300; 84443; 85025; 85730; 87040; 87086; 93005; A4663; G0378; G0480; G0480-TC; J0696; J2060; J3370; J7030; J7060

== ENCOUNTER 2018-12-01 14:20 | Inpatient (IN) | payer MEDICARE ==
[~2018-12-01] VITALS: Ht 162.6 cm; Wt 56.2 kg
[2018-12-01 05:00] VITALS: BP 165/81
[~2018-12-01 14:20] MED LIST changes: +AMLO5TAB9 PO; -ATOR20TA PO; +BIFI1CAP PO; +CARB-96 PO; -CARB1TAB40 PO; -CHOL20004 PO; +CHOL200078 PO; -CLOB15CR4 TP; +CLON0.1T PO; -CYAN-51 PO; +CYAN100T3 PO; -DILT180C PO; +DOCU100T PO; +FLUD0.1T PO; -FLUD0.1T3 PO; +LOSA25TA27 PO; -LOSA25TA3 PO; -LOSA50TA39 PO; -MAGN400O6 PO; +MELA10TA3 PO; -MEMA10TA PO; +MEMA5TAB PO; -METO25TA6 PO; +OLAN2.5T3 PO; -OLAN5TAB6 PO; -RISP0.2515 PO; -SACC250C PO; +SENN-148 PO
[2018-12-01] MEDS ORDERED: IV NORMAL SALINE 500 ML BAG IV ONE (14:45)
[2018-12-01 15:01] LABS: BASOPHILS # (AUTO) 0.1 K/uL (0.0-8.0); BASOPHILS % (AUTO) 1.1 % (0.0-2.0); EOSINOPHILS # (AUTO) 0.4 K/uL (0.0-0.7); EOSINOPHILS % (AUTO) 4.8 % (0.0-7.0); HEMATOCRIT 41.3 % (36.7-47.1); HEMOGLOBIN 14.2 g/dL (12.5-16.3); LYMPHOCYTES # (AUTO) 0.9 K/uL (20.0-40.0); LYMPHOCYTES % (AUTO) 10.4 % (20.5-51.5); MEAN CORPUSCULAR HEMOGLOBIN 31.9 uug (23.8-33.4); MEAN CORPUSCULAR HGB CONC 34 g/dL (32.5-36.3); MEAN CORPUSCULAR VOLUME 92.8 fL (73.0-96.2); MONOCYTES # (AUTO) 0.6 K/uL (2.0-10.0); MONOCYTES % (AUTO) 7.2 % (0.0-11.0); NEUTROPHILS # (AUTO) 6.9 K/uL (1.8-8.9); NEUTROPHILS % (AUTO) 76.5 % (38.5-71.5); PLATELET COUNT (AUTO) 252 K/uL (152-348); RED BLOOD CELL COUNT(AUTO) 4.45 MIL/uL (4.06-5.63)
[2018-12-01 15:08] LABS: CREATININE 1.1 mg/dL (0.6-1.3); POTASSIUM 3.4 mmol/L (3.5-5.1)
[2018-12-01 15:14] LABS: BILIRUBIN,DIRECT 0.1 mg/dL (0.0-0.2); BILIRUBIN,TOTAL 0.4 mg/dL (0.2-1.0); TOTAL PROTEIN, SERUM 7.5 g/dL (6.4-8.2)
[2018-12-01] MEDS ORDERED: IV NS 1000 ML 1,000 ML IV PRN (16:49)
[2018-12-01] MEDS ORDERED: MAGNESIUM HYDROXIDE 30 ML LIQUID UDC PO PRN (17:00)
[2018-12-01] MEDS ORDERED: ONDANSETRON 4 MG/2 ML VIAL IV PRN (17:00)
[2018-12-01] MEDS ORDERED: HYDROCODONE/APAP 5-325MG TABLET PO PRN (17:00)
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
--- NOTE | 2018-12-01 17:34 | NUR ---
pt transfered to floor in stable condition. pt sister at bedside.
[2018-12-01 18:03] VITALS: BP 167/72
[2018-12-01] MEDS: CARBIDOPA/LEVODOPA 25-100MG TABLET PO SCH (18:03)
[2018-12-01] MEDS: MEMANTINE HCL 5 MG TABLET PO SCH (18:03)
[2018-12-01] MEDS: OLANZAPINE 2.5 MG TABLET PO SCH (18:03)
--- NOTE | 2018-12-01 19:00 | NUR ---
PATIENT TOLERATED ABOUT 50 PERCENT OF DINNER DUE MEDICATIONS GIVEN AND TOLERAYTED WELL WILL CONTINUE TO OBSERVE.
[2018-12-01 20:00] VITALS: BP 149/74
[2018-12-01] MEDS: CARBIDOPA/LEVODOPA CR 50-200MG TABLET.SA PO SCH (20:02)
[2018-12-01] MEDS: SENNOSIDES 1 TABLET PO SCH (20:03)
[2018-12-01] MEDS: ATORVASTATIN 10 MG TABLET PO SCH (20:03)
[2018-12-01] MEDS: CLONAZEPAM 0.5 MG TABLET PO SCH (20:03)
[2018-12-01] MEDS: Z GUARD REMEDY PASTE 57 GM TUBE TOP SCH (20:04)
[2018-12-01] MEDS: ENOXAPARIN SODIUM 40 MG/0.4 ML DISP.SYRIN SQ SCH (20:04)
--- NOTE | 2018-12-01 22:00 | NUR ---
Pt has been observed to be very impulsive, climbing out of bed and does not follow commands; Dr Jordan informed and ordered 1:1 sitter; informed steel grinder and Nursing Glassware Selector.
[2018-12-02] VITALS (7 sets, daily range): BP systolic 108–177; BP diastolic 61–88
[2018-12-02 07:03] LABS: BASOPHILS # (AUTO) 0.1 K/uL (0.0-8.0); BASOPHILS % (AUTO) 1.3 % (0.0-2.0); EOSINOPHILS # (AUTO) 0.7 K/uL (0.0-0.7); EOSINOPHILS % (AUTO) 10.5 % (0.0-7.0); HEMATOCRIT 36.7 % (36.7-47.1); HEMOGLOBIN 12.7 g/dL (12.5-16.3); LYMPHOCYTES # (AUTO) 1.2 K/uL (20.0-40.0); LYMPHOCYTES % (AUTO) 17.4 % (20.5-51.5); MEAN CORPUSCULAR HEMOGLOBIN 31.7 uug (23.8-33.4); MEAN CORPUSCULAR HGB CONC 35 g/dL (32.5-36.3); MEAN CORPUSCULAR VOLUME 91.2 fL (73.0-96.2); MONOCYTES # (AUTO) 0.5 K/uL (2.0-10.0); MONOCYTES % (AUTO) 7.3 % (0.0-11.0); NEUTROPHILS # (AUTO) 4.4 K/uL (1.8-8.9); NEUTROPHILS % (AUTO) 63.5 % (38.5-71.5); PLATELET COUNT (AUTO) 216 K/uL (152-348); RED BLOOD CELL COUNT(AUTO) 4.02 MIL/uL (4.06-5.63)
[2018-12-02 07:15] LABS: CARBON DIOXIDE 32 mmol/L (21-32); CHLORIDE 108 mmol/L (98-107); CHOLESTEROL 124 mg/dL (<200); GLUCOSE 99 mg/dL (74-106); HDL CHOLESTEROL 53 mg/dL (40-60); MAGNESIUM 1.7 mg/dL (1.8-2.4); PHOSPHOROUS 2.9 mg/dL (2.5-4.9); POTASSIUM 3.6 mmol/L (3.5-5.1); TRIGLYCERIDES 58 MG/DL (30-150); UREA NITROGEN, BLOOD 22 mg/dL (7-18)
[2018-12-02 07:37] LABS: THYROID STIMULATING HORMONE 2.781 mIU/mL (0.358-3.740)
--- NOTE | 2018-12-02 08:00 | NUR ---
in bed resting comfortably, no ss of pain or distress sr on monitor. continue with 1:1 sitter for comfort
[2018-12-02] MEDS: SERTRALINE HCL 50 MG TABLET PO SCH (08:50)
[2018-12-02] MEDS: CARBIDOPA/LEVODOPA 25-100MG TABLET PO SCH ×3 (08:51→17:01)
[2018-12-02] MEDS: FLUDROCORTISONE ACETATE 0.1 MG TABLET PO SCH (08:51)
[2018-12-02] MEDS: MEMANTINE HCL 5 MG TABLET PO SCH ×2 (08:51→17:02)
[2018-12-02] MEDS: OLANZAPINE 2.5 MG TABLET PO SCH ×2 (08:51→17:02)
[2018-12-02] MEDS: Z GUARD REMEDY PASTE 57 GM TUBE TOP SCH ×2 (08:52→20:34)
[2018-12-02] MEDS ORDERED: CYANOCOBALAMIN 100 MCG TABLET PO SCH (09:00)
--- NOTE | 2018-12-02 11:00 | NUR ---
seen by dr estrada gomez dc to [facility] per briefcase sewer Addendum: 12/02/18 at 1429 by SHYANNE GUTHRIE RN wrong entry
[2018-12-02] MEDS ORDERED: MAGNESIUM OXIDE 400 MG TABLET PO SCH (11:30)
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
[2018-12-02] MEDS: MAGNESIUM OXIDE 400 MG TABLET PO SCH ×2 (12:53→17:02)
[2018-12-02] MEDS: CYANOCOBALAMIN 1,000 MCG TABLET PO SCH (12:53)
--- NOTE | 2018-12-02 14:24 | NUR ---
no acute change continue tele monitoring
[2018-12-02] MEDS: Z GUARD REMEDY PASTE 57 GM TUBE TOP PRN (14:54)
[2018-12-02] MEDS: CLOTRIMAZOLE 1% CREAM 30 GM TUBE TOP SCH (17:02)
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
[2018-12-02] MEDS: OLANZAPINE 5 MG TABLET PO SCH (18:18)
[2018-12-02] MEDS: CLONAZEPAM 0.5 MG TABLET PO SCH (20:16)
[2018-12-02] MEDS: CARBIDOPA/LEVODOPA CR 50-200MG TABLET.SA PO SCH (20:16)
[2018-12-02] MEDS: SENNOSIDES 1 TABLET PO SCH (20:16)
[2018-12-02] MEDS: ATORVASTATIN 10 MG TABLET PO SCH (20:17)
[2018-12-02] MEDS: LOSARTAN POTASSIUM 25 MG TABLET PO SCH (20:17)
[2018-12-02] MEDS: ENOXAPARIN SODIUM 40 MG/0.4 ML DISP.SYRIN SQ SCH (20:34)
--- NOTE | 2018-12-02 22:00 | NUR ---
BP elevated at 177/83 HR 96. Losartan was resumed, losartan given per md order. rechecked bp 108/61 HR71 at rest.
[2018-12-03 04:00] VITALS: BP 164/80
--- NOTE | 2018-12-03 06:49 | NUR ---
patient slept intermittently last night, patient continues to be restless and changes positions very frequently in bed. Bp checked at 164/80, endorsed to AM shift.
[2018-12-03 07:39] LABS: BASOPHILS # (AUTO) 0.1 K/uL (0.0-8.0); BASOPHILS % (AUTO) 1.9 % (0.0-2.0); EOSINOPHILS # (AUTO) 0.7 K/uL (0.0-0.7); EOSINOPHILS % (AUTO) 12.2 % (0.0-7.0); HEMATOCRIT 36.4 % (36.7-47.1); HEMOGLOBIN 12.9 g/dL (12.5-16.3); LYMPHOCYTES % (AUTO) 16.6 % (20.5-51.5); MEAN CORPUSCULAR HGB CONC 36 g/dL (32.5-36.3); MONOCYTES # (AUTO) 0.4 K/uL (2.0-10.0); MONOCYTES % (AUTO) 6.9 % (0.0-11.0); NEUTROPHILS # (AUTO) 3.8 K/uL (1.8-8.9); NEUTROPHILS % (AUTO) 62.4 % (38.5-71.5); PLATELET COUNT (AUTO) 221 K/uL (152-348); RED BLOOD CELL COUNT(AUTO) 4.04 MIL/uL (4.06-5.63)
[2018-12-03 07:49] VITALS: BP 160/81
[2018-12-03 07:55] LABS: CARBON DIOXIDE 33 mmol/L (21-32); CHLORIDE 106 mmol/L (98-107); CREATININE 0.9 mg/dL (0.6-1.3); GLUCOSE 98 mg/dL (74-106); PHOSPHOROUS 2.7 mg/dL (2.5-4.9); POTASSIUM 3.3 mmol/L (3.5-5.1); UREA NITROGEN, BLOOD 16 mg/dL (7-18)
--- NOTE | 2018-12-03 08:00 | NUR ---
CALMED AND COOPERATIVE, NO SS OF PAIN OR DISTRESS. CONTINUE WITH 1:1 SITTER FOR SAFETY
[2018-12-03] MEDS: FLUDROCORTISONE ACETATE 0.1 MG TABLET PO SCH (08:04)
[2018-12-03] MEDS: MEMANTINE HCL 5 MG TABLET PO SCH ×2 (08:04→16:05)
[2018-12-03] MEDS: OLANZAPINE 5 MG TABLET PO SCH (08:04)
[2018-12-03] MEDS: CYANOCOBALAMIN 1,000 MCG TABLET PO SCH (08:04)
[2018-12-03] MEDS: SERTRALINE HCL 50 MG TABLET PO SCH (08:04)
[2018-12-03] MEDS: CARBIDOPA/LEVODOPA 25-100MG TABLET PO SCH ×3 (08:05→16:05)
[2018-12-03] MEDS: LOSARTAN POTASSIUM 25 MG TABLET PO SCH (08:05)
[2018-12-03] MEDS: Z GUARD REMEDY PASTE 57 GM TUBE TOP SCH ×2 (08:06→20:33)
[2018-12-03] MEDS: CLOTRIMAZOLE 1% CREAM 30 GM TUBE TOP SCH ×2 (08:06→16:05)
[2018-12-03] MEDS: Z GUARD REMEDY PASTE 57 GM TUBE TOP PRN (08:07)
--- NOTE | 2018-12-03 10:00 | NUR ---
SEEN BY DR POOL PATIENT VERY AGITATED AND TRYING TO GET OUT OF BED. ORDERS RECEIVED X1 DOSE OF ZYPREXIA. PSYCH CONSULT IN PLACED DR MOTTA NOTIFIED WILL FOLLOW-UP PATIENT
[2018-12-03] MEDS ORDERED: OLANZAPINE 5 MG TABLET PO PRN (10:15)
[2018-12-03] MEDS: IV NS 1000 ML 1,000 ML IV PRN (10:45)
[2018-12-03 11:58] VITALS: BP 135/65
[2018-12-03] MEDS ORDERED: POTASSIUM CHLORIDE 20 MEQ TAB.PRT.SR PO ONE (14:00)
--- NOTE | 2018-12-03 14:00 | NUR ---
SEEN BY DR MOTTA FOR PSYCH CONSULT SEE NOTES
[2018-12-03] MEDS ORDERED: LORAZEPAM 0.5 MG TABLET PO PRN (14:15)
[2018-12-03 14:54] VITALS: BP 145/80
[2018-12-03] MEDS: QUETIAPINE FUMARATE 25 MG TABLET PO PRN (17:07)
--- NOTE | 2018-12-03 18:35 | NUR ---
continue 1:1 for safety
[2018-12-03 20:00] VITALS: BP 167/77
[2018-12-03] MEDS: CARBIDOPA/LEVODOPA CR 50-200MG TABLET.SA PO SCH (20:30)
[2018-12-03] MEDS: SENNOSIDES 1 TABLET PO SCH (20:30)
[2018-12-03] MEDS: ATORVASTATIN 10 MG TABLET PO SCH (20:30)
[2018-12-03] MEDS: ENOXAPARIN SODIUM 40 MG/0.4 ML DISP.SYRIN SQ SCH (20:33)
[2018-12-03] MEDS ORDERED: QUETIAPINE FUMARATE 25 MG TABLET PO SCH (21:00)
[2018-12-04] MEDS: IV NS 1000 ML 1,000 ML IV PRN (01:06)
[2018-12-04 04:00] VITALS: BP_SYST 152; BP_SYST 169; BP_DIAS 65; BP_DIAS 89
--- NOTE | 2018-12-04 06:26 | NUR ---
Patient slept well last night , 1:1 at bedside for safety . no acute changes, tolerated Iv fluids well. BP still tends to be in the high side. orthostats completed. Endorsed to AM shift
[2018-12-04 06:49] LABS: CARBON DIOXIDE 31 mmol/L (21-32); CHLORIDE 108 mmol/L (98-107); CREATININE 0.9 mg/dL (0.6-1.3); GLUCOSE 93 mg/dL (74-106); POTASSIUM 3.4 mmol/L (3.5-5.1); UREA NITROGEN, BLOOD 16 mg/dL (7-18)
--- NOTE | 2018-12-04 07:15 | NUR ---
Received patient in Bed, awake and verbally responsive. No signs of Distress noted. No complain of pain or discomfort. IV fluids NS 0.9% running at 75cc/hr, no infiltration noted. On 1:1 sitter for safety. kept the bed in lowest position. will continue to monitor.
[2018-12-04 07:47] VITALS: BP 185/93
[2018-12-04] MEDS ORDERED: POTASSIUM CHLORIDE 20 MEQ TAB.PRT.SR PO ONE (08:00)
[2018-12-04] MEDS: CARBIDOPA/LEVODOPA 25-100MG TABLET PO SCH ×2 (08:14→12:22)
[2018-12-04] MEDS: MEMANTINE HCL 5 MG TABLET PO SCH (08:14)
[2018-12-04] MEDS: FLUDROCORTISONE ACETATE 0.1 MG TABLET PO SCH (08:14)
[2018-12-04] MEDS: QUETIAPINE FUMARATE 25 MG TABLET PO PRN (08:15)
[2018-12-04] MEDS: SERTRALINE HCL 50 MG TABLET PO SCH (08:15)
[2018-12-04] MEDS: CYANOCOBALAMIN 1,000 MCG TABLET PO SCH (08:15)
[2018-12-04] MEDS: LOSARTAN POTASSIUM 25 MG TABLET PO SCH (08:15)
[2018-12-04] MEDS: CLOTRIMAZOLE 1% CREAM 30 GM TUBE TOP SCH (08:39)
[2018-12-04] MEDS: Z GUARD REMEDY PASTE 57 GM TUBE TOP SCH (08:39)
[2018-12-04 10:41] VITALS: BP 135/64
--- NOTE | 2018-12-04 15:10 | NUR ---
Patient in Bed, awake and verbally responsive with RP at bedside. No signs of Distress noted. No SOB. No complain of Pain or discomfort. Patient with discharge order to NEST board and care, Discharge Instruction given to KIRK Mcginnis/Patient and verbalized Understanding. All belongings signed by KIRK Mcginnis. Removed IV site and wrist band. patient was Picked up by [facility] in stable condition.
[2018-12-04] MEDS ORDERED: QUETIAPINE FUMARATE 25 MG TABLET PO SCH (17:00)
== END 2018-12-04 15:15 | DRG 312 ==
LOC: ER 14:20 → TELE3 17:08 → MEDSURG3 12-02 18:35
DX: I95.1 Orthostatic hypotension (principal); F02.81 Dementia in other diseases classified elsewhere, unspecified severity, with behavioral disturbance; N40.0 Benign prostatic hyperplasia without lower urinary tract symptoms; G31.83 Neurocognitive disorder with Lewy bodies; E78.5 Hyperlipidemia, unspecified; Z91.81 History of falling; Z99.3 Dependence on wheelchair; H26.9 Unspecified cataract; Z79.52 Long term (current) use of systemic steroids; Z87.891 Personal history of nicotine dependence; Z79.899 Other long term (current) drug therapy; F41.9 Anxiety disorder, unspecified; F32.9 Major depressive disorder, single episode, unspecified; I10 Essential (primary) hypertension; Z90.79 Acquired absence of other genital organ(s)
CPT/HCPCS: 36415; 70030-TC; 83605; 83735; 84100; 84443; 85025; 85730; 87040; 93005; 93307; A4663; G0378; J1650; J7030